=== PATIENT | female | born 1955 | race Caucasian/White ===

== ENCOUNTER → 2016-11-29 | Outpatient (REF) ==
[~2016-11-29] MED LIST: ACCUPRIL40 MG PO; ACTOS 45MG45 MG/TAB PO; AMBIEN 10MG10 MG PO; AVANDIA4 MG PO; EFFEXOR 75M75 MG/TAB PO; GLUCOPHAGE500 MG/TAB PO; LASIX 40MG TABL40 MG PO; METRONIDAZOLE500 MG PO; PEPCID40 MG PO; PRILOSEC 20MG20 MG PO; SYNTHROID0.05 MG/TA PO; ZOFRAN 4MG T4 MG/TAB PO
[2016-11-29 15:42] LABS: THYROID STIMULATING HORMONE 4.07 uIU/mL (0.465-4.680)
== END ==
LOC: ZLAB.WCH 14:50
PROVIDERS: Internal Medicine
DX: Z01.89 Encounter for other specified special examinations (principal)

== ENCOUNTER 2017-01-29 14:46 | Inpatient (IN) | payer BC ==
[~2017-01-29] VITALS: Ht 162.6 cm; Wt 109.2 kg
[2017-01-29 15:13] VITALS: BP 134/70; PULSE 91; TEMP 98.5
[2017-01-30 06:15] VITALS: BP 151/89; PULSE 117; PULSE 77; TEMP 96.5
[2017-01-30 18:14] VITALS: BP 102/51; PULSE 100; TEMP 98
[2017-01-31 06:26] VITALS: BP 105/55; PULSE 89; TEMP 98.7
[2017-01-31 07:05] LABS: BASO % 0.3 % (0.0-2.0); EOS # 0.2 (0.0-0.7); EOS % 1.7 % (0-4.0); GRAN % 58.9 % (42.2-75.2); LYMPH # 3.7 (1.2-3.4); LYMPH % 31.4 % (20.0-51.0); MEAN CELL VOLUME 80 fl (80.0-100.0); MEAN CORPUSCULAR HGB CONC 30 g/dl (33.0-37.0); MEAN PLATELET VOLUME 11.9 fl (7.4-10.4); MONO # 0.9 (0.1-0.6); MONO % 7.4 % (1.7-9.3); PLATELET COUNT 313 K/mm3 (130-400); RED BLOOD COUNT 3.32 M/mm3 (4.10-5.30); WHITE BLOOD COUNT 11.8 K/mm3 (4.8-10.8)
[2017-01-31] MEDS ORDERED: KLOR-CON M2020 MEQ PO (07:06)
[2017-01-31 07:08] LABS: CALCIUM 9.3 mg/dL (8.4-10.2); CREATININE, serum 1.43 mg/dL (0.52-1.25); HEMATOCRIT 26.7 % (37.0-47.0); MAGNESIUM 1.9 mg/dL (1.6-2.3); MEAN CORPUSCULAR HEMOGLOBIN 24 pg (27.0-31.0); POTASSIUM 4.5 mmol/L (3.4-5.0)
[2017-01-31] MEDS ORDERED: IRON TABLETS325 MG PO (07:09)
[2017-01-31] MEDS ORDERED: ULTRAM 50MG TAB50 MG PO (07:11)
[2017-01-31] MEDS ORDERED: XARELTO10 MG PO (07:13)
[2017-01-31 17:05] VITALS: BP 132/65; PULSE 89; TEMP 97.8
[2017-02-01 05:14] VITALS: BP 114/60; PULSE 83; TEMP 98
[2017-02-01 08:21] VITALS: BP 123/72
[2017-02-01 18:09] VITALS: BP 116/64; PULSE 88; TEMP 97.1
[2017-02-02 06:10] VITALS: BP 115/48; PULSE 85; TEMP 97.7
[2017-02-02 06:53] LABS: HEMATOCRIT 26.5 % (37.0-47.0)
[2017-02-02 07:04] LABS: CALCIUM 9.4 mg/dL (8.4-10.2); CREATININE, serum 1.55 mg/dL (0.52-1.25); MAGNESIUM 2.1 mg/dL (1.6-2.3); POTASSIUM 4.6 mmol/L (3.4-5.0)
[2017-02-02 17:15] VITALS: BP 116/59; PULSE 95; TEMP 97.2
[2017-02-03 06:20] VITALS: BP 118/51; PULSE 84; TEMP 98.2
[2017-02-03 14:51] VITALS: BP 127/64; PULSE 85; TEMP 97.1
[2017-02-04 05:39] VITALS: BP 125/46; PULSE 91; TEMP 98.2
[2017-02-04 07:28] LABS: CALCIUM 9.5 mg/dL (8.4-10.2); CREATININE, serum 1.71 mg/dL (0.52-1.25); POTASSIUM 4.8 mmol/L (3.4-5.0)
[2017-02-04] MEDS ORDERED: FERROUS SU325 MG/TAB PO (08:24)
[2017-02-04] MEDS ORDERED: ULTRAM 50MG TAB50 MG PO (08:28)
[2017-02-04] MEDS ORDERED: AMBIEN 10MG10 MG PO (08:28)
[2017-02-04 14:12] VITALS: BP 134/55; PULSE 71; TEMP 98.6
== END 2017-02-04 12:40 | disposition home health service (06) | DRG 561 ==
PROVIDERS: Internal Medicine
DX: S82.841D Displaced bimalleolar fracture of right lower leg, subsequent encounter for closed fracture with routine healing (principal); W18.30XD Fall on same level, unspecified, subsequent encounter; E11.9 Type 2 diabetes mellitus without complications; I10 Essential (primary) hypertension
CPT/HCPCS: 99222-AI; 99232-AI; 99239

== ENCOUNTER → 2017-02-21 | Outpatient (REF) ==
[~2017-02-21] MED LIST changes: +FERROUS SU325 MG/TAB PO; +IRON TABLETS325 MG PO; +KLOR-CON M2020 MEQ PO; +ULTRAM 50MG TAB50 MG PO; +XARELTO10 MG PO
[2017-02-21 19:23] LABS: THYROID STIMULATING HORMONE 2.3 uIU/mL (0.465-4.680)
== END ==
LOC: ZLAB.WCH 18:28
PROVIDERS: Internal Medicine
DX: Z01.89 Encounter for other specified special examinations (principal)

== ENCOUNTER → 2017-03-16 | Outpatient (CLI) | payer BC | LOC: COL.VAS 10:30 | DX: I37.1 Nonrheumatic pulmonary valve insufficiency (principal) ==

== ENCOUNTER 2017-10-25 17:21 | Inpatient (IN) | payer BC ==
[~2017-10-25] VITALS: Ht 162.6 cm; Wt 106.9 kg
[~2017-10-25 17:21] MED LIST changes: -EFFEXOR 75M75 MG/TAB PO; +EFFEXOR XR75 MG/CAP PO
[2017-10-25 19:33] VITALS: BP 137/77; PULSE 109; TEMP 98.9
[2017-10-25 20:48] VITALS: BP 137/77; PULSE 109; TEMP 98.9
[2017-10-25 23:39] LABS: PH 5 (5-8); SQUAMOUS EPITHELIAL 0-2 /hpf; URINE APPEARANCE Clear; URINE BACTERIA Rare /hpf; URINE BILIRUBIN Negative (NEGATIVE); URINE BLOOD Negative (NEGATIVE); URINE COLOR Yellow; URINE GLUCOSE Negative (NEGATIVE); URINE KETONE Negative (NEGATIVE); URINE LEUKOCYTE ESTERASE Trace (NEGATIVE); URINE NITRATE Negative (NEGATIVE); URINE PROTEIN(semi-quant) Negative (NEGATIVE); URINE RBC 0-2 /hpf; URINE UROBILINOGEN Negative (NEGATIVE)
[2017-10-25 23:46] LABS: COLLECTION METHOD CLEAN CATCH
[2017-10-26 00:41] VITALS: BP 142/76; PULSE 101; TEMP 98.6
[2017-10-26 04:53] VITALS: BP 142/64; PULSE 105; TEMP 98.7
[2017-10-26] MEDS ORDERED: LASIX 20MG TABL20 MG PO (06:44)
[2017-10-26] MEDS ORDERED: K-DUR20 MEQ PO (06:48)
[2017-10-26] MEDS ORDERED: AMARYL4 MG PO (06:49)
[2017-10-26 06:53] LABS: BASO # 0.1 (0.0-0.2); BASO % 0.3 % (0.0-2.0); EOS # 0.2 (0.0-0.7); EOS % 1.2 % (0-4.0); GRAN # 12.3 (1.4-6.5); GRAN % 75.8 % (42.2-75.2); HEMOGLOBIN 10.3 g/dl (12.5-16.0); LYMPH # 2.7 (1.2-3.4); LYMPH % 16.6 % (20.0-51.0); MEAN CELL VOLUME 85 fl (80.0-100.0); MEAN CORPUSCULAR HEMOGLOBIN 27 pg (27.0-31.0); MEAN CORPUSCULAR HGB CONC 32 g/dl (33.0-37.0); MEAN PLATELET VOLUME 13.1 fl (7.4-10.4); MONO # 0.9 (0.1-0.6); MONO % 5.5 % (1.7-9.3); PLATELET COUNT 196 K/mm3 (130-400); PROTHROMBIN TIME 11.7 SECONDS (9.7-12.8); RED BLOOD COUNT 3.81 M/mm3 (4.10-5.30); REDCELL DISTRIBUTION WIDTH-CV 15.9 % (11.5-14.5)
[2017-10-26 06:55] LABS: HEMATOCRIT 32.3 % (37.0-47.0)
[2017-10-26 07:02] LABS: ALBUMIN 3.4 gm/dL (3.5-5.0); BILIRUBIN,TOTAL 0.6 mg/dL (0.0-1.0); CALCIUM 8.8 mg/dL (8.4-10.2); CREATININE, serum 1.35 mg/dL (0.52-1.25); POTASSIUM 4.2 mmol/L (3.4-5.0); TOTAL PROTEIN 6.6 gm/dL (6.4-8.2)
[2017-10-26 08:33] VITALS: BP 134/61; PULSE 89; TEMP 98.3
[2017-10-26 12:39] VITALS: BP 146/58; PULSE 88; TEMP 98.3
[2017-10-26 15:31] VITALS: BP 147/63; PULSE 91; TEMP 98.8
[2017-10-26 20:00] VITALS: BP 140/76; PULSE 104; TEMP 98.2
[2017-10-27 04:02] VITALS: BP 140/76; PULSE 108; TEMP 99.1
[2017-10-27 07:36] VITALS: BP 129/73; PULSE 106; TEMP 98.9
[2017-10-27 07:39] LABS: BASO % 0.3 % (0.0-2.0); EOS # 0.1 (0.0-0.7); EOS % 0.8 % (0-4.0); GRAN # 10.9 (1.4-6.5); GRAN % 76.7 % (42.2-75.2); LYMPH # 2.1 (1.2-3.4); LYMPH % 14.9 % (20.0-51.0); MEAN CELL VOLUME 84 fl (80.0-100.0); MEAN CORPUSCULAR HGB CONC 32 g/dl (33.0-37.0); MEAN PLATELET VOLUME 12.5 fl (7.4-10.4); MONO % 6.8 % (1.7-9.3); PLATELET COUNT 201 K/mm3 (130-400); RED BLOOD COUNT 3.57 M/mm3 (4.10-5.30); REDCELL DISTRIBUTION WIDTH-CV 15.6 % (11.5-14.5)
[2017-10-27 07:42] LABS: HEMOGLOBIN 9.5 g/dl (12.5-16.0); MEAN CORPUSCULAR HEMOGLOBIN 27 pg (27.0-31.0)
[2017-10-27 07:58] LABS: CALCIUM 8.5 mg/dL (8.4-10.2); CREATININE, serum 1.21 mg/dL (0.52-1.25); POTASSIUM 4.1 mmol/L (3.4-5.0)
[2017-10-27 11:42] VITALS: BP 128/69; PULSE 91
[2017-10-27 16:37] VITALS: BP 132/73; PULSE 88; TEMP 98.3
[2017-10-27 21:30] VITALS: BP 127/76; PULSE 90; TEMP 98.7
[2017-10-28] VITALS (12 sets, daily range): BP systolic 86–148; BP diastolic 48–85; PULSE 72–102; TEMP 98–98.4
[2017-10-28 06:38] LABS: BASO % 0.3 % (0.0-2.0); EOS # 0.3 (0.0-0.7); GRAN # 8.8 (1.4-6.5); GRAN % 70.9 % (42.2-75.2); LYMPH # 2.5 (1.2-3.4); LYMPH % 19.9 % (20.0-51.0); MEAN CELL VOLUME 87 fl (80.0-100.0); MEAN CORPUSCULAR HGB CONC 31 g/dl (33.0-37.0); MEAN PLATELET VOLUME 12.5 fl (7.4-10.4); MONO # 0.8 (0.1-0.6); MONO % 6.3 % (1.7-9.3); PLATELET COUNT 195 K/mm3 (130-400); RED BLOOD COUNT 3.31 M/mm3 (4.10-5.30); REDCELL DISTRIBUTION WIDTH-CV 15.9 % (11.5-14.5)
[2017-10-28 06:47] LABS: HEMATOCRIT 28.8 % (37.0-47.0); MEAN CORPUSCULAR HEMOGLOBIN 27 pg (27.0-31.0)
[2017-10-28 06:50] LABS: CALCIUM 8.4 mg/dL (8.4-10.2); CREATININE, serum 1.18 mg/dL (0.52-1.25); POTASSIUM 4.2 mmol/L (3.4-5.0)
[2017-10-29] VITALS (7 sets, daily range): BP systolic 115–136; BP diastolic 62–78; PULSE 68–100; TEMP 98.1–98.7
[2017-10-29 08:20] LABS: CALCIUM 8.7 mg/dL (8.4-10.2); CREATININE, serum 1.25 mg/dL (0.52-1.25); POTASSIUM 4.3 mmol/L (3.4-5.0)
[2017-10-29 08:31] LABS: BASO # 0.1 (0.0-0.2); BASO % 0.4 % (0.0-2.0); EOS # 0.3 (0.0-0.7); EOS % 2.6 % (0-4.0); GRAN # 7.5 (1.4-6.5); LYMPH # 2.4 (1.2-3.4); LYMPH % 21.5 % (20.0-51.0); MEAN CELL VOLUME 85 fl (80.0-100.0); MEAN CORPUSCULAR HGB CONC 32 g/dl (33.0-37.0); MONO # 0.9 (0.1-0.6); MONO % 7.7 % (1.7-9.3); PLATELET COUNT 242 K/mm3 (130-400); RED BLOOD COUNT 3.38 M/mm3 (4.10-5.30); REDCELL DISTRIBUTION WIDTH-CV 15.9 % (11.5-14.5)
[2017-10-29 08:32] LABS: HEMATOCRIT 28.8 % (37.0-47.0); HEMOGLOBIN 9.1 g/dl (12.5-16.0); MEAN CORPUSCULAR HEMOGLOBIN 27 pg (27.0-31.0)
[2017-10-30 00:41] VITALS: BP 122/74; PULSE 76; TEMP 98.4
[2017-10-30 04:33] VITALS: BP 138/68; PULSE 82; TEMP 98.3
[2017-10-30 06:56] LABS: BASO # 0.1 (0.0-0.2); BASO % 0.5 % (0.0-2.0); EOS # 0.3 (0.0-0.7); EOS % 2.8 % (0-4.0); GRAN # 6.4 (1.4-6.5); LYMPH # 2.6 (1.2-3.4); LYMPH % 25.2 % (20.0-51.0); MEAN CELL VOLUME 85 fl (80.0-100.0); MEAN CORPUSCULAR HGB CONC 32 g/dl (33.0-37.0); MEAN PLATELET VOLUME 11.5 fl (7.4-10.4); MONO # 0.8 (0.1-0.6); MONO % 7.5 % (1.7-9.3); PLATELET COUNT 236 K/mm3 (130-400); RED BLOOD COUNT 3.23 M/mm3 (4.10-5.30); REDCELL DISTRIBUTION WIDTH-CV 15.7 % (11.5-14.5)
[2017-10-30 06:57] LABS: HEMATOCRIT 27.3 % (37.0-47.0); HEMOGLOBIN 8.7 g/dl (12.5-16.0); MEAN CORPUSCULAR HEMOGLOBIN 27 pg (27.0-31.0)
[2017-10-30 07:05] LABS: CALCIUM 8.4 mg/dL (8.4-10.2); CREATININE, serum 1.25 mg/dL (0.52-1.25); POTASSIUM 4.4 mmol/L (3.4-5.0)
[2017-10-30 07:14] VITALS: BP 134/72; PULSE 88; TEMP 97.7
[2017-10-30 11:28] VITALS: BP 138/78; PULSE 90; TEMP 97.7
[2017-10-30] MEDS ORDERED: CLEOCIN HC150 MG/CAP PO (15:35)
[2017-10-30] MEDS ORDERED: PROBIOTIC ACID1 EAC3 PO (15:36)
== END 2017-10-30 16:30 | disposition home or self-care (01) | DRG 854 ==
LOC: SURG 17:21
PROVIDERS: Hospitalist; Nurse Practitioner; Nurse Practitioner Family; Physician Assistant; Surgery
PROC: 0J990ZZ Drainage of Buttock Subcutaneous Tissue and Fascia, Open Approach (ICD-10-PCS; principal; 2017-10-28 08:00)
PROC: 0J9900Z Drainage of Buttock Subcutaneous Tissue and Fascia with Drainage Device, Open Approach (ICD-10-PCS; 2017-10-29)
DX: A41.9 Sepsis, unspecified organism (principal); L02.31 Cutaneous abscess of buttock; Z68.41 Body mass index [BMI] 40.0-44.9, adult; E87.1 Hypo-osmolality and hyponatremia; B95.62 Methicillin resistant Staphylococcus aureus infection as the cause of diseases classified elsewhere; I12.9 Hypertensive chronic kidney disease with stage 1 through stage 4 chronic kidney disease, or unspecified chronic kidney disease; E11.22 Type 2 diabetes mellitus with diabetic chronic kidney disease; N18.9 Chronic kidney disease, unspecified; B37.2 Candidiasis of skin and nail; E66.01 Morbid (severe) obesity due to excess calories
CPT/HCPCS: 99232-AI; 99233-AI; J1815; J2250; J2405; J2704; J3010; J3370; J3480; J7030; J7040; J7050

== ENCOUNTER → 2017-12-14 | Outpatient (REF) ==
[~2017-12-14] MED LIST changes: +AMARYL4 MG PO; +CLEOCIN HC150 MG/CAP PO; +K-DUR20 MEQ PO; +LASIX 20MG TABL20 MG PO; +PROBIOTIC ACID1 EAC3 PO
== END ==
LOC: ZLAB.WCH 18:15
DX: Z01.89 Encounter for other specified special examinations (principal)

== ENCOUNTER → 2018-03-20 | Outpatient (REF) ==
[2018-03-20 16:28] LABS: IRON,SERUM 49 ug/dL (35-150)
[2018-03-20 16:37] LABS: TOTAL IRON BINDING CAPACITY 274 ug/dL (265-497)
[2018-03-20 17:07] LABS: FERRITIN 68 ng/mL (11-264)
== END ==
LOC: ZLAB.WCH 16:09
PROVIDERS: Internal Medicine
DX: Z01.89 Encounter for other specified special examinations (principal)

== ENCOUNTER 2018-08-19 21:27 | Inpatient (IN) | payer BC ==
[~2018-08-19] VITALS: Ht 162.6 cm; Wt 96.6 kg
[2018-08-19 21:53] LABS: BASO # 0.1 (0.0-0.2); BASO % 0.3 % (0.0-2.0); EOS # 0.1 (0.0-0.7); EOS % 0.4 % (0-4.0); GRAN # 10.9 (1.4-6.5); GRAN % 68.9 % (42.2-75.2); HEMATOCRIT 39.1 % (37.0-47.0); HEMOGLOBIN 13.5 g/dl (12.5-16.0); LYMPH # 4.1 (1.2-3.4); LYMPH % 25.8 % (20.0-51.0); MEAN CELL VOLUME 79 fl (80.0-100.0); MEAN CORPUSCULAR HEMOGLOBIN 27 pg (27.0-31.0); MEAN CORPUSCULAR HGB CONC 35 g/dl (33.0-37.0); MEAN PLATELET VOLUME 12.3 fl (7.4-10.4); MONO # 0.6 (0.1-0.6); PLATELET COUNT 303 K/mm3 (130-400); RED BLOOD COUNT 4.93 M/mm3 (4.10-5.30); REDCELL DISTRIBUTION WIDTH-CV 14.8 % (11.5-14.5)
[2018-08-19 22:11] LABS: ALBUMIN 4.9 gm/dL (3.5-5.0); BILIRUBIN,TOTAL 0.8 mg/dL (0.0-1.0); C-REACTIVE PROTEIN 0.6 mg/dL (0.0-0.9); CALCIUM 10.3 mg/dL (8.4-10.2); CREATININE, serum 1.19 (0.52-1.25); TOTAL PROTEIN 8.8 gm/dL (6.4-8.2)
[2018-08-19] MEDS ORDERED: FORTAMET500 M1 PO (22:23)
[2018-08-19] MEDS ORDERED: PROAIR HFA0.09 MG/AC IH (22:25)
[2018-08-19] MEDS ORDERED: NATURAL MAGNES200 MG PO (22:57)
[2018-08-19] MEDS ORDERED: MULTI VITAMINS1 TAB PO (22:57)
[2018-08-19] MEDS ORDERED: PROBIOTIC ACID1 EAC3 PO (22:59)
[2018-08-19 23:35] LABS: COLLECTION METHOD CLEAN CATCH
[2018-08-19 23:49] LABS: MUCOUS Present /lpf; PH 6 (5-8); SQUAMOUS EPITHELIAL 0-2 /hpf; URINE APPEARANCE Hazy; URINE BACTERIA Rare /hpf; URINE BILIRUBIN Negative (NEGATIVE); URINE BLOOD Negative (NEGATIVE); URINE COLOR Straw; URINE GLUCOSE 1+ (NEGATIVE); URINE KETONE Negative (NEGATIVE); URINE LEUKOCYTE ESTERASE 2+ (NEGATIVE); URINE NITRATE Negative (NEGATIVE); URINE PROTEIN(semi-quant) Negative (NEGATIVE); URINE UROBILINOGEN Negative (NEGATIVE)
[2018-08-20] VITALS (618 sets, daily range): BP systolic 113–152; BP diastolic 61–93; PULSE 89–98; TEMP 97.6–98.8; O2SAT 93–100
[2018-08-20 00:38] LABS: INR 0.9 (0.8-3.0); PROTHROMBIN TIME 10.5 SECONDS (9.7-12.8)
[2018-08-20 00:40] LABS: PARTIAL THROMBOPLASTIN TIME 29.5 SECONDS (26.0-37.0)
--- NOTE | 2018-08-20 01:01 | NUR ---
RECEIVED REPORT FROM ER NURSE BRIJESH.
[2018-08-20 01:17] LABS: ANION GAP 14 mmol/L (7-16); BLOOD UREA NITROGEN 28 mg/dL (7-17); CARBON DIOXIDE 17 mmol/L (22-30); CHLORIDE 90 mmol/L (98-107); CREATININE, serum 1.02 (0.52-1.25); GLUCOSE 143 mg/dL (74-106); POTASSIUM 5.7 mmol/L (3.4-5.0); SODIUM 121 mmol/L (137-145)
[2018-08-20 01:18] LABS: SALICYLATE < 1.0 mg/dL
[2018-08-20] MEDS ORDERED: ACCUPRIL40MGTAB PO (01:33)
[2018-08-20] MEDS ORDERED: ACTOS 15MG TAB15 MG PO (01:35)
[2018-08-20] MEDS ORDERED: IRON TABLETS325 MG PO (01:38)
[2018-08-20] MEDS ORDERED: AMBIEN 10MG10 MG PO (01:40)
[2018-08-20 02:25] LABS: TROPONIN-I < 0.012 ng/mL (0.000-0.035)
[2018-08-20 03:55] LABS: BILIRUBIN,TOTAL 0.6 mg/dL (0.0-1.0); CREATININE, serum 1.02 (0.52-1.25); POTASSIUM 4.9 mmol/L (3.4-5.0); TOTAL PROTEIN 7.1 gm/dL (6.4-8.2)
[2018-08-20 05:37] LABS: BASO % 0.2 % (0.0-2.0); EOS # 0.1 (0.0-0.7); EOS % 0.5 % (0-4.0); GRAN # 6.7 (1.4-6.5); GRAN % 57.1 % (42.2-75.2); LYMPH # 4.1 (1.2-3.4); LYMPH % 34.7 % (20.0-51.0); MEAN CELL VOLUME 80 fl (80.0-100.0); MEAN CORPUSCULAR HGB CONC 34 g/dl (33.0-37.0); MEAN PLATELET VOLUME 12.3 fl (7.4-10.4); MONO # 0.8 (0.1-0.6); MONO % 7.1 % (1.7-9.3); PLATELET COUNT 222 K/mm3 (130-400); RED BLOOD COUNT 4.22 M/mm3 (4.10-5.30); REDCELL DISTRIBUTION WIDTH-CV 14.9 % (11.5-14.5)
[2018-08-20 05:38] LABS: HEMATOCRIT 33.8 % (37.0-47.0); HEMOGLOBIN 11.5 g/dl (12.5-16.0); MEAN CORPUSCULAR HEMOGLOBIN 27 pg (27.0-31.0)
--- NOTE | 2018-08-20 07:00 | NUR ---
Report received from PATTIE Vela. PT in bed resting, awake and alert, denies needs, IVF to RAC. Denies needs, will continue to monitor.
--- NOTE | 2018-08-20 08:34 | NUR ---
Assessment charted. Dr. Gonzalez in to see patient, orders received for surgery this am. Pts at bedside, consent signed for procedure. Pt resting in bed, up to bathroom, urine yellow and clear. Deneis pain. IVF to R A/C. Pt left at this time for OR with OR nurse Tasneem who will resume care.
--- NOTE | 2018-08-20 10:30 | NUR ---
Pt arrived back to room at this time with OR staff. Awake and alert, denies needs except feeling nauseated. VSS. Will continue to monitor.
--- NOTE | 2018-08-20 11:30 | NUR ---
Patient lives at home with her spouse (Chang Dickinson [phone]) in [place], [place] and plans to return home upon discharge. Patient is independent with daily living activities and receives support as needed from her family including her and daughter (Sissy Grimm). Patient has a walker to use for mobility as needed, her primary care physician is Dr. Lawrence Brantley, her pharmacy is [facility], and she does not have advance directives for healthcare completed at this time. Patient is employed in Sales Management with [employer] and no further needs at this time.
--- NOTE | 2018-08-20 12:37 | NUR ---
Pt doing well. Awake and resting. Up to bathroom, steady on feet. ORdered some food and wants to see how it is handled. Per Dr. Cerrato pt will transfer up to floor today, will continue to monitor.
--- NOTE | 2018-08-20 14:54 | NUR ---
Report called to PATTIE Robertson on surgical who will be resuming care. Will transport patient with all bleongings via w/c to surgical room 347. Surgical nurse can resume care.
--- NOTE | 2018-08-20 18:06 | NUR ---
THE PT WAS RECIEWED TO ROOM 347, MRSA ISOLATION IN USE. ACCOMPANIED BY YOLA BLANKENSHIP. WHO ASSISTED THE PT TO THE BR TO VOID- SBA. THEN TO THE BED, POSITIONED FOR COMFORT. IV PATENT. PLEASANT. WATCHES TV.
--- NOTE | 2018-08-20 18:39 | NUR ---
VISITS WITH FAMILY, STATED THAT SHE HAD A LATE LUNCH, SANDWICH AND CHIPS ORDERED FOR LATER. DIETARY WILL LEAVE IT IN THE FRIDGE.
--- NOTE | 2018-08-20 19:21 | NUR ---
Pt resting with HOB elevated. No distress noted. Pt denies pain. Pt does report some burning with urination which is new per pt. Urinary ouput is yellow with sediment. Straining urine. Assessment otherwise within normal limits. No needs noted. Will continue to monitor.
[2018-08-20 19:36] LABS: CALCIUM 9.1 mg/dL (8.4-10.2); CREATININE, serum 1.24 (0.52-1.25); POTASSIUM 5.3 mmol/L (3.4-5.0)
--- NOTE | 2018-08-21 00:09 | NUR ---
Pt reports pain is increasing and first dose of Ultram did not work. Second dose given. Will continue to monitor.
[2018-08-21 00:10] VITALS: BP 119/61; PULSE 89; TEMP 98.6
--- NOTE | 2018-08-21 01:50 | NUR ---
Pt reports pain is now 6/10, unrelieved by Ultram. Pt also now having hematuria.
--- NOTE | 2018-08-21 02:15 | NUR ---
Dr. Gonzalez contacted about patients increased pain levels. Orders received.
[2018-08-21 03:00] VITALS: BP 122/64; PULSE 88; TEMP 98.2
--- NOTE | 2018-08-21 04:00 | NUR ---
Pt reports that Percocet dulled her pain and she is comfortable again.
[2018-08-21 06:12] LABS: BASO % 0.2 % (0.0-2.0); EOS % 0.3 % (0-4.0); GRAN # 7.5 (1.4-6.5); GRAN % 66.2 % (42.2-75.2); LYMPH % 26.6 % (20.0-51.0); MEAN CELL VOLUME 83 fl (80.0-100.0); MEAN CORPUSCULAR HGB CONC 33 g/dl (33.0-37.0); MEAN PLATELET VOLUME 12.3 fl (7.4-10.4); MONO # 0.7 (0.1-0.6); MONO % 6.3 % (1.7-9.3); PLATELET COUNT 188 K/mm3 (130-400); RED BLOOD COUNT 3.54 M/mm3 (4.10-5.30); REDCELL DISTRIBUTION WIDTH-CV 15.1 % (11.5-14.5)
--- NOTE | 2018-08-21 06:15 | NUR ---
Pt resting in bed this AM. Pt denies pain this AM. No distress. Pt has not slept very much throughout the night as she has been up voiding multiple times. No needs noted. VSS.
[2018-08-21 06:22] LABS: HEMATOCRIT 29.5 % (37.0-47.0); HEMOGLOBIN 9.7 g/dl (12.5-16.0); MEAN CORPUSCULAR HEMOGLOBIN 27 pg (27.0-31.0)
[2018-08-21 06:25] LABS: CALCIUM 8.4 mg/dL (8.4-10.2); CREATININE, serum 1.1 (0.52-1.25); MAGNESIUM 2.1 mg/dL (1.6-2.3); POTASSIUM 4.5 mmol/L (3.4-5.0)
[2018-08-21 08:37] VITALS: BP 130/65; PULSE 75; TEMP 98.3
--- NOTE | 2018-08-21 11:00 | NUR ---
Patient has been doing well this am. Deies nausea. Minimal complaints of pain. Encouraged her to avoid drinking a lot of water, tea or coffee. Explained that since her sodium is low those can act as a diuretic and lower her sodium. Patient verbalized understanding. No other changes at this time. Call light within reach.
[2018-08-21 11:24] VITALS: BP 143/68; PULSE 86; TEMP 97.7
[2018-08-21 16:13] VITALS: BP 122/67; PULSE 84; TEMP 97.5
--- NOTE | 2018-08-21 19:00 | NUR ---
Ultram given at this time for pain. Patient has been unhooked from the IV for several hours. Denies nausea. Pain is well controlled with the ultram today. She has been getting around the room well. She just go her dinner tray. No other changes at this time. Call light within reach.
--- NOTE | 2018-08-21 19:27 | NUR ---
Pt resting in bed with HOB elevated after just returning from bathroom. No distress noted. Respirations even and unlabored. Lungs clear. Abdomen soft, nontender. BS+. Pt voiding clear, yellow urine with sediment at times. Pt c/o pain in lower abdomen on primarily LLQ that radiates to RLQ. Pt was previously medicated by dayshift for pain. Pt denies needs at this time. Will continue to monitor.
[2018-08-21 20:37] VITALS: BP 107/60; PULSE 88; TEMP 98.7
[2018-08-22 01:14] VITALS: BP 101/53; PULSE 78; TEMP 98.3
[2018-08-22 05:30] VITALS: BP 143/72; PULSE 91; TEMP 97.9
--- NOTE | 2018-08-22 06:17 | NUR ---
Lab at bedside. Pt c/o pain 5/10 in LLQ radiating across lower abdomen. PRN pain medications given with AM meds. Pt reports she has slept periodically throughout the shift. Urinary output has been clear, yellow.
[2018-08-22 06:51] LABS: CALCIUM 8.5 mg/dL (8.4-10.2); CREATININE, serum 1.11 (0.52-1.25); POTASSIUM 4.5 mmol/L (3.4-5.0)
[2018-08-22 07:15] LABS: BASO # 0.1 (0.0-0.2); BASO % 0.5 % (0.0-2.0); EOS # 0.2 (0.0-0.7); EOS % 1.2 % (0-4.0); GRAN # 6.5 (1.4-6.5); GRAN % 54.2 % (42.2-75.2); HEMOGLOBIN 10.6 g/dl (12.5-16.0); LYMPH # 4.5 (1.2-3.4); LYMPH % 37.2 % (20.0-51.0); MEAN CELL VOLUME 84 fl (80.0-100.0); MEAN CORPUSCULAR HEMOGLOBIN 27 pg (27.0-31.0); MEAN CORPUSCULAR HGB CONC 33 g/dl (33.0-37.0); MEAN PLATELET VOLUME 12.6 fl (7.4-10.4); MONO # 0.7 (0.1-0.6); MONO % 6.2 % (1.7-9.3); PLATELET COUNT 208 K/mm3 (130-400); RED BLOOD COUNT 3.87 M/mm3 (4.10-5.30); REDCELL DISTRIBUTION WIDTH-CV 15.6 % (11.5-14.5)
[2018-08-22 07:16] LABS: HEMATOCRIT 32.6 % (37.0-47.0)
--- NOTE | 2018-08-22 07:19 | NUR ---
report from Chanelle BLANKENSHIP.
[2018-08-22 07:29] VITALS: BP 127/63; PULSE 82; TEMP 97.5
[2018-08-22] MEDS ORDERED: CEFTIN500 MG PO (08:58)
[2018-08-22] MEDS ORDERED: ULTRAM 50MG TAB50 MG PO (08:59)
--- NOTE | 2018-08-22 09:10 | NUR ---
Patient is dc home today with no unmet discharge needs.
--- NOTE | 2018-08-22 10:52 | NUR ---
Initial visit; Patient thanked Category Manager for offering God's blessings and wishing her good health as she prepares to be discharged.
--- NOTE | 2018-08-22 10:56 | NUR ---
DISCHARGE INSTRUCTIONS REVIEWED WITH PATIENT AND FAMILY. QUESTIONS ANSWERED. PT LEFT AMBULATORY.
--- NOTE | 2018-08-22 11:00 | NUR ---
PT FEELING BETTER TO DAY AND WANTS TO GO HOME.
== END 2018-08-22 11:01 | disposition home or self-care (01) | DRG 854 ==
LOC: COL.ER 21:27 → ICU 08-20 00:30 → SURG 08-20 00:30
PROVIDERS: Internal Medicine; Nurse Practitioner; Nurse Practitioner Family; Urology; ADMIT Hospitalist
PROC: 0T778DZ Dilation of Left Ureter with Intraluminal Device, Via Natural or Artificial Opening Endoscopic (ICD-10-PCS; principal; 2018-08-20 09:00)
PROC: BT1FYZZ Fluoroscopy of Left Kidney, Ureter and Bladder using Other Contrast (ICD-10-PCS; 2018-08-20 09:00)
DX: A41.9 Sepsis, unspecified organism (principal); N13.2 Hydronephrosis with renal and ureteral calculous obstruction; E87.1 Hypo-osmolality and hyponatremia; E87.2 Acidosis; N39.0 Urinary tract infection, site not specified; R65.20 Severe sepsis without septic shock; E11.9 Type 2 diabetes mellitus without complications; K76.0 Fatty (change of) liver, not elsewhere classified; I10 Essential (primary) hypertension; E03.9 Hypothyroidism, unspecified; E87.6 Hypokalemia; E87.5 Hyperkalemia; E66.9 Obesity, unspecified; Z68.36 Body mass index [BMI] 36.0-36.9, adult; I44.7 Left bundle-branch block, unspecified; F32.9 Major depressive disorder, single episode, unspecified; K21.9 Gastro-esophageal reflux disease without esophagitis; B96.1 Klebsiella pneumoniae [K. pneumoniae] as the cause of diseases classified elsewhere; D64.9 Anemia, unspecified; R31.9 Hematuria, unspecified; Z90.710 Acquired absence of both cervix and uterus; Z88.0 Allergy status to penicillin; Z88.2 Allergy status to sulfonamides
CPT/HCPCS: 99223-AI; 99233-AI; 99239; A4216; C1769; C2617; J0690; J0696; J1100; J1170; J1815; J1885; J2405; J2550; J2704; J3010; J7030; Q9967

== ENCOUNTER 2019-01-04 18:24 | Inpatient (IN) | payer BC ==
[~2019-01-04] VITALS: Ht 162.6 cm; Wt 98.2 kg
[2019-01-04] VITALS (7 sets, daily range): BP systolic 132–165; BP diastolic 58–89; PULSE 84–92; TEMP 99.1
--- NOTE | 2019-01-04 18:00 | NUR ---
PT ADMITTED TO FLOOR AT THIS TIME.DR. MENDEZ NOTIFIED UPON ARRIVAL TO UNIT. COMPLETED MED REQ PRIOR TO PT GOING TO O.R.
[~2019-01-04 18:24] MED LIST changes: +ACCUPRIL40MGTAB PO; +ACTOS 15MG TAB15 MG PO; +CEFTIN500 MG PO; +FORTAMET500 M1 PO; +MULTI VITAMINS1 TAB PO; +NATURAL MAGNES200 MG PO; +PROAIR HFA0.09 MG/AC IH
[2019-01-04] MEDS ORDERED: PROBIOTIC FORMU1 CAP PO (18:49)
--- NOTE | 2019-01-04 20:12 | NUR ---
Received report for OR on patient at this time.
--- NOTE | 2019-01-04 20:22 | NUR ---
Arrived to medical floor at this time. Lungs clear. Heart sounds normal. Bowels active x4. Pulses strong throughout. No edema noted. Dressing to medial lower back CDI at this time. Patient reporting pain. Requested medication for pain and nausea. NO orders on chart at this time. Dr. Wilcox notified of patient arrival. Will be in to see patient soon.
--- NOTE | 2019-01-04 22:34 | NUR ---
Reports 8/10 back pain. Provided with PRN tramadol. Reporting mild nausea. Given zofran. Denies other needs at this time. Call light in reach.
--- NOTE | 2019-01-04 23:56 | NUR ---
Provided patient with PRN dilaudid for 7/10 back pain. Dressing CDI at this time.
[2019-01-05] VITALS (14 sets, daily range): BP systolic 118–145; BP diastolic 44–78; PULSE 65–100; TEMP 98.2–99.3
--- NOTE | 2019-01-05 06:32 | NUR ---
Patient had uneventful night. Required x1 dose of tramadol and x1 dose of dilaudid for pain control in back. Rating pain at 3/10 this AM. Denied needs. Call light in reach.
--- NOTE | 2019-01-05 07:28 | NUR ---
Report given Tiffanie RN
[2019-01-05 07:29] LABS: BASO % 0.3 % (0.0-2.0); EOS # 0.1 (0.0-0.7); GRAN # 9.4 (1.4-6.5); GRAN % 73.2 % (42.2-75.2); HEMATOCRIT 29.3 % (37.0-47.0); HEMOGLOBIN 9.2 g/dl (12.5-16.0); LYMPH # 2.4 (1.2-3.4); LYMPH % 18.5 % (20.0-51.0); MEAN CELL VOLUME 87 fl (80.0-100.0); MEAN CORPUSCULAR HEMOGLOBIN 27 pg (27.0-31.0); MEAN CORPUSCULAR HGB CONC 31 g/dl (33.0-37.0); MEAN PLATELET VOLUME 12.3 fl (7.4-10.4); MONO # 0.8 (0.1-0.6); MONO % 6.2 % (1.7-9.3); PLATELET COUNT 187 K/mm3 (130-400); RED BLOOD COUNT 3.38 M/mm3 (4.10-5.30); REDCELL DISTRIBUTION WIDTH-CV 14.5 % (11.5-14.5)
[2019-01-05 07:38] LABS: CALCIUM 8.3 mg/dL (8.4-10.2); CREATININE, serum 0.96 (0.52-1.25); POTASSIUM 3.4 mmol/L (3.4-5.0)
--- NOTE | 2019-01-05 08:20 | NUR ---
Vancomycin Initial Dosing Pharmacy Note Ordering provider: Milton Wilcox DO Indication/duration: Skin/Soft tissue infection, 7 days Relevant comorbidities: Diabetes, h/o MRSA LABS: SCr 0.96, CrCl~60, GFR 59 Recommendation: Will continue Vancomcyin 1 gm IV q12h. Pharmacy will check a Vancomycin trough on 01/07/19 and will closely monitor. Loading dose: 2 grams Maintenance dose: 1 gram every 12 hours Trough goal: 10-15 ug/mL
--- NOTE | 2019-01-05 09:11 | NUR ---
Pt currently sleeping in bed on her right side. No complaints at this time. Bed is in lowest postion and call light within reach.
--- NOTE | 2019-01-05 14:03 | NUR ---
Inshore Undersea Warfare Officer met with patient and patient's , Chang (ph#[phone]) to discuss discharge plan. Patient lives in [place] with her and grandchild. Patient sees Dr. Brantley for primary care and obtains her medications from [facility] with no difficulty. Patient reports independence with ADLS and does not use any DME. Patient does not have DPOA-HC, but is working on a will and trust through Alina Velazquez, an city attorney out of [place]. Patient plans to return home upon discharge. SW will follow as needed.
--- NOTE | 2019-01-05 14:08 | NUR ---
Primary nurse was assisted with [phone] patient care by [facility] ADN student Malorie Thompson and [facility] instructor Kerri Lombardi RN-BC.
--- NOTE | 2019-01-05 19:00 | NUR ---
PT WENT TO I&D TODAY, DRESSSING CDI, C/O PAIN AFTERWARDS, GAVE TRAMADOL. GAVE PO ZOFRAN FOR NAUSEA NO FURTHER NEEDS FOR PAIN MEDS OR ANTINAUSEA MEDS. ATE SUPPER THIS EVENING. IV SITE RESTARTED THIS EVENING DUE TO SITE NO LONGER ACCESSED. WAS ON 2L OF 02 AFTER SURGERY WAS ABLE TO KEEP SATS UP WAS ON RA REST OF DAY.
--- NOTE | 2019-01-06 01:08 | NUR ---
Patient resting in bed upon arrival to the room. Dressing to midback intact at beginning of shift. Patient called after ambulating to the bathroom and stated some of the packing at come out. Dressing reinforced at the bottom. Patient requests Tramadol PRN for pain. Administered and effective. IV antibiotics administered as ordered. Denies any further needs. Will continue to monitor.
[2019-01-06 03:38] VITALS: BP 114/58; PULSE 81
[2019-01-06 08:34] LABS: BASO % 0.5 % (0.0-2.0); EOS # 0.2 (0.0-0.7); EOS % 2.7 % (0-4.0); GRAN # 4.8 (1.4-6.5); GRAN % 63.2 % (42.2-75.2); LYMPH % 25.6 % (20.0-51.0); MEAN CELL VOLUME 87 fl (80.0-100.0); MEAN CORPUSCULAR HGB CONC 31 g/dl (33.0-37.0); MEAN PLATELET VOLUME 11.8 fl (7.4-10.4); MONO # 0.6 (0.1-0.6); MONO % 7.2 % (1.7-9.3); PLATELET COUNT 204 K/mm3 (130-400); RED BLOOD COUNT 3.22 M/mm3 (4.10-5.30); REDCELL DISTRIBUTION WIDTH-CV 14.3 % (11.5-14.5)
[2019-01-06 08:57] LABS: C-REACTIVE PROTEIN 7.5 mg/dL (0.0-0.9); CREATININE, serum 0.95 (0.52-1.25); HEMATOCRIT 27.9 % (37.0-47.0); HEMOGLOBIN 8.6 g/dl (12.5-16.0); MEAN CORPUSCULAR HEMOGLOBIN 27 pg (27.0-31.0); POTASSIUM 3.4 mmol/L (3.4-5.0)
[2019-01-06 09:27] VITALS: BP 133/63; PULSE 83; TEMP 98.4
--- NOTE | 2019-01-06 10:33 | NUR ---
Assessment completed, alert/oriented, vital signs stable/ afebrile, reports pain mild/ but increased pain with dressing changes, wound looks clean with serous drainage noted/ wet-dry sterile dressing change done/ and will be done TID as ordered by surgeon, wound Cx results pending, discharge planning for Tuesday so we can get home wound care set up and get Cx results to finalize antibiotic choice, heart RRR/distal pulses are palapble, lungs CTA/ no reps.difficulty, no other needs or concerns at this time
[2019-01-06 12:20] VITALS: BP 138/72; PULSE 83; TEMP 98.3
[2019-01-06 16:55] VITALS: BP 122/65; PULSE 87; TEMP 98.3
--- NOTE | 2019-01-06 19:00 | NUR ---
REPORT RECEIVED FROM PATTIE CHAPA; CARE OF PT ASSUMED AT THIS TIME. BEDSIDE ROUNDS COMPLETED, ALL NEEDS MET. CALL LIGHT WITHIN REACH.
[2019-01-06 20:37] VITALS: BP 144/73; PULSE 92; TEMP 97.7
--- NOTE | 2019-01-06 21:04 | NUR ---
PT ALERT, AWAKE, OX3; PLEASANT. PT REPORTS PAIN TO ABCESS ON SPINE, RATES AT 6/10 CURRENTLY, TRAMADOL GIVEN AT THIS TIME PER PT REQUEST. PT REPORTS HAVING A BOUT OF DIARRHEA THIS AFTERNOON, DENIES NAUESEA, OTHER ISSUES. DENIES URINARY ISSUES. CALL LIGHT WITHIN REACH.
[2019-01-07] VITALS (7 sets, daily range): BP systolic 121–144; BP diastolic 58–82; PULSE 67–92; TEMP 97.8–98.6
--- NOTE | 2019-01-07 03:10 | NUR ---
PT PROVIDED WITH PAIN MEDICATION AT THIS TIME PER REQUEST. PT STATES HER PAIN IS 8-9/10 TO HER BACK "WHERE MY WOUND IS!"
--- NOTE | 2019-01-07 06:47 | NUR ---
PT DIDN'T SLEEP MUCH DURING THE NIGHT, COMPLAINED OF PAIN TO HER WOUND SITE ON BACK OCC; PAIN MEDS GIVEN PRN WHEN REQUESTED. PT WAS OCC SLEEPING WHEN CHECKING ON HER. INDEPENDENTLY AMBULATES WITHIN ROOM. CALL LIGHT WITHIN REACH.
[2019-01-07 07:09] LABS: BASO # 0.1 (0.0-0.2); BASO % 0.6 % (0.0-2.0); EOS # 0.4 (0.0-0.7); EOS % 4.3 % (0-4.0); GRAN # 4.8 (1.4-6.5); GRAN % 57.2 % (42.2-75.2); HEMATOCRIT 29.6 % (37.0-47.0); HEMOGLOBIN 9.4 g/dl (12.5-16.0); LYMPH # 2.5 (1.2-3.4); LYMPH % 30.1 % (20.0-51.0); MEAN CELL VOLUME 86 fl (80.0-100.0); MEAN CORPUSCULAR HEMOGLOBIN 27 pg (27.0-31.0); MEAN CORPUSCULAR HGB CONC 32 g/dl (33.0-37.0); MEAN PLATELET VOLUME 11.2 fl (7.4-10.4); MONO # 0.6 (0.1-0.6); MONO % 6.8 % (1.7-9.3); PLATELET COUNT 249 K/mm3 (130-400); RED BLOOD COUNT 3.43 M/mm3 (4.10-5.30); REDCELL DISTRIBUTION WIDTH-CV 14.4 % (11.5-14.5)
--- NOTE | 2019-01-07 07:15 | NUR ---
REPORT GIVEN TO PATTIE CHAPA; BEDSIDE ROUNDS COMPLETED AT THIS TIME. CALL LIGHT WITHIN REACH.
[2019-01-07 07:16] LABS: CALCIUM 8.6 mg/dL (8.4-10.2); CREATININE, serum 0.97 (0.52-1.25); MAGNESIUM 1.8 mg/dL (1.6-2.3); POTASSIUM 3.7 mmol/L (3.4-5.0)
--- NOTE | 2019-01-07 10:00 | NUR ---
Assessment completed, alert/oriented, vital signs stable, report mild pain to back/ wound, ultram given prior to dressing change as pain is worse during this time, wound cx + MRSA/ hospitalist notified, dressing changed wet-to-dry, discharge planning for Tuesday01/08/19 with outpatient wound care/ dressing changes to be set-up, continued on IV vanc and will switch to PO doxycyline, patient denies other needs or concerns at this time
--- NOTE | 2019-01-07 20:00 | NUR ---
Assessment complete. Alert and oriented. C/O pain to back abscess, rate 8/10. PRN Ultram administered with relief. Pain medication administered 30 mins prior to dressing change, as requested by pt. Wet to dry dressing change complete. No drainage noted, wound bed red/pink with small spots of servin areas. Wound cleansed with sterile water soaked gauze, packed with wet kerlix, covered with 2pc 4x4 and abd pad, secured with hypafix. Pt tolerated well. INT to RFA infiltrated and DC'd, pt states pain when flush. PATTIE Gandhi started new INT to LFA, patent, CDI. Contact precautions in place. Needs met. pt able to make needs known. Call light within reach.
[2019-01-08 04:00] VITALS: BP 98/47; PULSE 74; TEMP 98.8
--- NOTE | 2019-01-08 06:30 | NUR ---
Pt slept well on this shift. Medications administered as ordered. Plan of care reviewed with pt throughout the night. Wet to dry dressing completed on this shift, tolerated well after being given PRN Ultram. Needs met. Call light within reach.
[2019-01-08 06:59] LABS: MEAN CELL VOLUME 86 fl (80.0-100.0); MEAN CORPUSCULAR HEMOGLOBIN 27 pg (27.0-31.0); MEAN CORPUSCULAR HGB CONC 31 g/dl (33.0-37.0); MEAN PLATELET VOLUME 11.2 fl (7.4-10.4); PLATELET COUNT 288 K/mm3 (130-400); RED BLOOD COUNT 3.71 M/mm3 (4.10-5.30); REDCELL DISTRIBUTION WIDTH-CV 14.2 % (11.5-14.5)
--- NOTE | 2019-01-08 07:03 | NUR ---
appears to be sleeping, in bed with lights off, eyes closed, resp quiet and easy, bedside shift report received from PATTIE Kay
[2019-01-08 07:18] LABS: CALCIUM 8.8 mg/dL (8.4-10.2); CREATININE, serum 0.96 (0.52-1.25); POTASSIUM 3.4 mmol/L (3.4-5.0)
--- NOTE | 2019-01-08 07:49 | NUR ---
appears to continue to sleep,
[2019-01-08 07:57] VITALS: BP 133/56; PULSE 73; TEMP 98
--- NOTE | 2019-01-08 08:29 | NUR ---
awakened for assessment, full assessment completed, see interventions for further info, dressing to back CD&I, in to visit, denies needs at this time
[2019-01-08 08:35] LABS: BAND 3 % (0-10); EOSINOPHIL 9 % (0-4); LYMPHOCYTE 31 % (20.0-51.0); NEUTROPHILS 49 % (42.0-75.2); PLATELET ESTIMATE NORMAL (NORMAL)
--- NOTE | 2019-01-08 09:55 | NUR ---
up and about in room independently, Dr Castaneda and care team in to see patient, medicated with ultram 50mg po in anticipation of dressing change
[2019-01-08] MEDS ORDERED: DOXYCYCLINE 10100 MG PO (10:00)
[2019-01-08] MEDS ORDERED: ULTRAM 50MG TAB50 MG PO (10:01)
[2019-01-08 11:04] VITALS: BP 117/67; PULSE 81; TEMP 98.9
--- NOTE | 2019-01-08 11:15 | NUR ---
dressing changed to back, removed kerlix packing and replaced with saline soaked kerlex, covered with 4x4s and then ABD dressing, tolerated well and states the ultram helps with the discomfort
--- NOTE | 2019-01-08 13:00 | NUR ---
is dressed and ready for discharge, INT discontinued, discharge instructions given to patient and her , verbalizes understanding
--- NOTE | 2019-01-08 13:15 | NUR ---
discharged per WC
== END 2019-01-08 13:15 | disposition home or self-care (01) | DRG 572 ==
LOC: MEDICAL 18:24
PROVIDERS: Family Medicine; Nurse Practitioner Family; Surgery
PROC: 0JB70ZZ Excision of Back Subcutaneous Tissue and Fascia, Open Approach (ICD-10-PCS; principal; 2019-01-04 19:30)
DX: L02.212 Cutaneous abscess of back [any part, except buttock and flank] (principal); L03.312 Cellulitis of back [any part except buttock and flank]; E11.65 Type 2 diabetes mellitus with hyperglycemia; E66.9 Obesity, unspecified; I10 Essential (primary) hypertension; D64.9 Anemia, unspecified; G47.00 Insomnia, unspecified; E78.5 Hyperlipidemia, unspecified; F32.9 Major depressive disorder, single episode, unspecified; E03.9 Hypothyroidism, unspecified; E87.5 Hyperkalemia; Z68.35 Body mass index [BMI] 35.0-35.9, adult; Z79.84 Long term (current) use of oral hypoglycemic drugs; Z88.0 Allergy status to penicillin; Z88.2 Allergy status to sulfonamides; Z88.8 Allergy status to other drugs, medicaments and biological substances
CPT/HCPCS: 99223-AI; 99232-AI; 99233-AI; 99239; A4216; J0692; J1170; J1335; J1815; J2405; J2550; J2704; J3010; J3370; J3480; J7030; J7040; J7050

== ENCOUNTER 2021-04-30 05:48 | Inpatient (IN) | payer BC ==
[~2021-04-30] VITALS: Ht 162.6 cm; Wt 104.0 kg
[~2021-04-30 05:48] MED LIST changes: +DOXYCYCLINE 10100 MG PO; +PROBIOTIC FORMU1 CAP PO
[2021-04-30 06:55] LABS: BASO # 0.1 K/mm3 (0.0-0.2); BASO % 0.4 % (0.0-2.0); EOS # 0.1 K/mm3 (0.0-0.7); EOS % 0.4 % (0.0-4.0); GRAN # 12.5 K/mm3 (1.4-6.5); GRAN % 81.6 % (42.2-75.2); HEMATOCRIT 37.3 % (37.0-47.0); HEMOGLOBIN 11.9 g/dl (12.5-16.0); LYMPH # 2.1 K/mm3 (1.2-3.4); LYMPH % 13.7 % (20.0-51.0); MEAN CELL VOLUME 78 fl (80.0-100.0); MEAN CORPUSCULAR HEMOGLOBIN 25 pg (27-31); MEAN CORPUSCULAR HGB CONC 32 g/dl (33.0-37.0); MONO # 0.5 K/mm3 (0.1-0.6); MONO % 3.5 % (1.7-9.3); PLATELET COUNT 174 K/mm3 (130-400); RED BLOOD COUNT 4.78 M/mm3 (4.10-5.30); REDCELL DISTRIBUTION WIDTH-CV 14.6 % (11.5-14.5)
[2021-04-30 07:08] LABS: ALBUMIN 3.3 gm/dL (3.4-4.8); BILIRUBIN,TOTAL 0.5 mg/dL (0.2-1.2); CALCIUM 8.5 mg/dL (8.4-10.2); CREATININE, serum 1.43 mg/dL (0.57-1.11); POTASSIUM 3.7 mmol/L (3.5-4.5); TOTAL PROTEIN 6.8 gm/dL (6.2-8.1)
[2021-04-30 08:17] LABS: CREATINE KINASE 20 U/L (29-168)
[2021-04-30 08:22] LABS: TROPONIN-I < 0.010 ng/mL (0.00-0.033)
[2021-04-30 08:48] LABS: COLLECTION METHOD CLEAN CATCH
[2021-04-30 08:55] LABS: PH 5 (5-8); SQUAMOUS EPITHELIAL 0-2 /hpf (0-10); URINE APPEARANCE Clear (CLEAR/HAZY); URINE BACTERIA None Seen /hpf (NONE SEEN); URINE BILIRUBIN Negative (NEGATIVE); URINE BLOOD Negative (NEGATIVE); URINE COLOR Straw (YELLOW); URINE GLUCOSE 3+ (NEGATIVE); URINE KETONE Negative (NEGATIVE); URINE LEUKOCYTE ESTERASE Negative (NEGATIVE); URINE NITRATE Negative (NEGATIVE); URINE PROTEIN(semi-quant) Negative (NEGATIVE); URINE RBC 0-2 /hpf (0-2); URINE UROBILINOGEN Negative (NEGATIVE)
[2021-04-30 12:39] VITALS: BP 137/64; PULSE 73; TEMP 97.5
[2021-04-30] MEDS ORDERED: LANTUS SOLOS100 U/ML SQ (14:40)
[2021-04-30] MEDS ORDERED: LASIX 20MG TABL20 MG PO (14:43)
[2021-04-30] MEDS ORDERED: LYRICA 75MG CAP75 MG PO (14:44)
[2021-04-30] MEDS ORDERED: PRIL40 PO (14:44)
[2021-04-30] MEDS ORDERED: CRESTOR20 MG PO (14:45)
--- NOTE | 2021-04-30 15:41 | NUR ---
Patient admitted to room 353 from ED.
[2021-04-30 16:00] VITALS: BP 153/72; PULSE 78; TEMP 98.2
--- NOTE | 2021-04-30 18:05 | NUR ---
Admission assessment completed. Medications, allergies, and pharmacy reviewed. PRN pain medication given for sharp 7/10 pain in left leg. VSS. Patient A&O. VSS. Fluids started as ordered. Patient denies any further pain, discomfort, SOA, or further needs at this time. Call light in reach. Fall percautions in place. at the bedside.
[2021-04-30 19:57] VITALS: BP 156/81; PULSE 76; TEMP 98.4
[2021-05-01 00:15] VITALS: BP 160/86; PULSE 88; TEMP 99
[2021-05-01 04:24] VITALS: BP 119/57; PULSE 77; TEMP 98.2
--- NOTE | 2021-05-01 06:00 | NUR ---
ASSESSMENT COMPLETE FOR THIS SHIFT. PT IN DISCOMFORT IN BED. PT COMPLAINED OF LEFT LEG AND ANKLE PAIN SHE RATED AN 8. PT GIVEN ULTRAM. PT STATED, PAIN NOT RELEIVED WITH ULTRAM. HOSPITALIST CALLED. MOTRIN AND MORPHINE ORDERED AND GIVEN TO PT. PT STATED THAT PAIN DOWN TO 4. PT DENIED PALPITATIONS, SOB, N,V,D OR DIZZINESS. PT EXPRESSED NO OTHER NEEDS. CALL LIGHT WITHIN.
[2021-05-01 06:05] LABS: BASO % 0.3 % (0.0-2.0); EOS # 0.1 K/mm3 (0.0-0.7); EOS % 0.9 % (0.0-4.0); GRAN # 5.2 K/mm3 (1.4-6.5); GRAN % 60.7 % (42.2-75.2); LYMPH # 2.7 K/mm3 (1.2-3.4); LYMPH % 30.9 % (20.0-51.0); MEAN CELL VOLUME 78 fl (80.0-100.0); MEAN CORPUSCULAR HEMOGLOBIN 25 pg (27-31); MEAN CORPUSCULAR HGB CONC 32 g/dl (33.0-37.0); MEAN PLATELET VOLUME 13.4 fl (7.4-10.4); MONO # 0.6 K/mm3 (0.1-0.6); PLATELET COUNT 162 K/mm3 (130-400); RED BLOOD COUNT 4.44 M/mm3 (4.10-5.30); REDCELL DISTRIBUTION WIDTH-CV 14.6 % (11.5-14.5)
[2021-05-01 06:07] LABS: HEMATOCRIT 34.8 % (37.0-47.0)
[2021-05-01 06:19] LABS: CALCIUM 8.6 mg/dL (8.4-10.2); CREATININE, serum 1.08 mg/dL (0.57-1.11); MAGNESIUM 1.6 mg/dL (1.6-2.6); PHOSPHOROUS 3.3 mg/dL (2.3-4.7); POTASSIUM 3.5 mmol/L (3.5-4.5)
[2021-05-01 08:35] VITALS: BP 137/79; PULSE 72; TEMP 98.5
[2021-05-01 11:46] VITALS: BP 152/71; PULSE 76; TEMP 97.6
--- NOTE | 2021-05-01 15:19 | NUR ---
Furniture Repairer met with patient and patient's , Chang (ph#[phone]) to discuss discharge planning. Patient lives in [place] with Chang and sees Dr. Brantley for primary care. Patient obtains medications from [facility] with no difficulties and has a cane/walker as needed. Patient reports independence with ADLS, however that she makes sure Chang is available while she is bathing in case she needs assistance or loses her balance. Patient requested to complete DPOA-HC. Patient filled out form and designated her , Chang. JANETTE and JANETTE Guevara provided witness signature. JANETTE provided original and copies to patient, then placed copy in chart. Patient would like to discharge home with outpatient PT at the [facility]. Discharge Plan: Home with outpatient PT
[2021-05-01 17:03] VITALS: BP 160/88; PULSE 73; TEMP 97.4
--- NOTE | 2021-05-01 18:45 | NUR ---
Patient has had an ok day. Scheduled medications given. Shift assessment performed. PRN pain medication given once this shift for LLE pain. Patient attempted to bear this shift, with no success. Patient is currenlty resting in bed. Respirations even and unlabored. Fluids running as ordered. Patient denies any further pain, discomfort, SOA, or further needs at this time. BP elevated, all other VSS. Patient A&O. Call light in reach.
[2021-05-01 20:31] VITALS: BP 154/81; PULSE 81; TEMP 98.5
[2021-05-02 00:27] VITALS: BP 161/80; PULSE 89; TEMP 98.3
--- NOTE | 2021-05-02 01:33 | NUR ---
PATIENT DOING WELL THIS SHIFT. PRN ULTRAM GIVEN Q 4 HOURS FOR PAIN TO LLE. ATTEMPTED TO BARE WEIGHT THIS SHIFT AND WAS HEAVY X2 ASSIST TO PIVOT TO COMMODE. PUREWICK WAS IN PLACE BUT HAS BEEN REMOVED. INSTRUCTED TO CALL FOR BED PIÑA OR BEDSIDE COMMODE WHEN NEEDED. HS MEDICATIONS GIVEN. BLOOD SUGARS ELEVATED AT 211. R AC IV PATENT WITH NS INFUSING AT 75 ML/HR.
[2021-05-02 04:25] VITALS: BP 164/85; PULSE 89; TEMP 98.6
[2021-05-02 06:21] LABS: BASO % 0.5 % (0.0-2.0); EOS # 0.2 K/mm3 (0.0-0.7); EOS % 1.9 % (0.0-4.0); GRAN # 4.6 K/mm3 (1.4-6.5); GRAN % 54.8 % (42.2-75.2); HEMOGLOBIN 10.8 g/dl (12.5-16.0); LYMPH % 35.5 % (20.0-51.0); MEAN CELL VOLUME 79 fl (80.0-100.0); MEAN CORPUSCULAR HEMOGLOBIN 25 pg (27-31); MEAN CORPUSCULAR HGB CONC 31 g/dl (33.0-37.0); MEAN PLATELET VOLUME 13.4 fl (7.4-10.4); MONO # 0.6 K/mm3 (0.1-0.6); MONO % 6.9 % (1.7-9.3); PLATELET COUNT 156 K/mm3 (130-400); RED BLOOD COUNT 4.36 M/mm3 (4.10-5.30); REDCELL DISTRIBUTION WIDTH-CV 14.9 % (11.5-14.5)
[2021-05-02 06:24] LABS: HEMATOCRIT 34.6 % (37.0-47.0)
[2021-05-02 06:34] LABS: CALCIUM 8.8 mg/dL (8.4-10.2); CREATININE, serum 0.83 mg/dL (0.57-1.11); MAGNESIUM 1.5 mg/dL (1.6-2.6); PHOSPHOROUS 2.9 mg/dL (2.3-4.7); POTASSIUM 3.6 mmol/L (3.5-4.5)
[2021-05-02 07:53] VITALS: BP 155/73; PULSE 92; TEMP 98.8
--- NOTE | 2021-05-02 08:00 | NUR ---
Patient called for assistance to use the bedpan. A&Ox4. VSS. IV CDI, fluids infusing. Reporting pain in left knee/leg. No pain medication given. Call light within reach
[2021-05-02 12:00] VITALS: BP 154/65; PULSE 91; TEMP 98.3
[2021-05-02 16:00] VITALS: BP 148/93; PULSE 87; TEMP 98.5
--- NOTE | 2021-05-02 17:57 | NUR ---
Patient had an uneventful day. Nursing staff positioning patient as needed for comfort. Left foot elevated on pillow. Pain medication given when requested. A&Ox4. VSS. IV CDI, fluids infusing. Call light within reach. Purewick in place and pericare provided
[2021-05-02 19:50] VITALS: BP 134/70; PULSE 77; TEMP 98.3
--- NOTE | 2021-05-02 20:30 | NUR ---
Patient is resting in bed, alert and oriented x 4, vss, receiving NS 75 ml/hr. Telemetry in place, NSR, States pain in her left leg. She will wait for the time of PRN. Assessment completed, medications provided. No other needs at this time. Call light within reach.
[2021-05-03 00:25] VITALS: BP 146/81; PULSE 88; TEMP 98.2
[2021-05-03 04:29] VITALS: BP 140/87; PULSE 87; TEMP 18
--- NOTE | 2021-05-03 06:24 | NUR ---
Patient has had a calm night. Continues getting NS at 75ml/hr. She got 1 dose of pain meds. Report will be given to day RN.
[2021-05-03 06:58] LABS: BASO % 0.4 % (0.0-2.0); EOS # 0.2 K/mm3 (0.0-0.7); EOS % 2.2 % (0.0-4.0); GRAN # 4.3 K/mm3 (1.4-6.5); GRAN % 59.8 % (42.2-75.2); HEMOGLOBIN 10.1 g/dl (12.5-16.0); LYMPH # 2.2 K/mm3 (1.2-3.4); LYMPH % 30.8 % (20.0-51.0); MEAN CELL VOLUME 82 fl (80.0-100.0); MEAN CORPUSCULAR HEMOGLOBIN 25 pg (27-31); MEAN CORPUSCULAR HGB CONC 31 g/dl (33.0-37.0); MEAN PLATELET VOLUME 12.9 fl (7.4-10.4); MONO # 0.5 K/mm3 (0.1-0.6); MONO % 6.5 % (1.7-9.3); PLATELET COUNT 151 K/mm3 (130-400); RED BLOOD COUNT 4.05 M/mm3 (4.10-5.30); REDCELL DISTRIBUTION WIDTH-CV 14.9 % (11.5-14.5)
[2021-05-03 07:07] LABS: ALBUMIN 2.7 gm/dL (3.4-4.8); CALCIUM 8.7 mg/dL (8.4-10.2); CREATININE, serum 0.82 mg/dL (0.57-1.11); MAGNESIUM 1.7 mg/dL (1.6-2.6); PHOSPHOROUS 3.2 mg/dL (2.3-4.7); POTASSIUM 3.8 mmol/L (3.5-4.5)
--- NOTE | 2021-05-03 08:00 | NUR ---
Patient sitting up in bed awake and watching TV. A&Ox4. VSS. IV CDI, fluids infusing. Left foot elevated on pillow. Contact precautions in place. Call light within reach
[2021-05-03 08:16] VITALS: BP 148/78; PULSE 80; TEMP 98.3
[2021-05-03 10:55] VITALS: BP 150/87; PULSE 96; TEMP 98.7
[2021-05-03 16:41] VITALS: BP 151/82; PULSE 80; TEMP 98.3
--- NOTE | 2021-05-03 17:19 | NUR ---
Patient worked with PT at the bedside and tolerated well. Left foot elevated on pillow, pain medication given when requested. Patient independent with repositioning in bed. A&Ox4. VSS. IV CDI. Contact precautions in place. Call light within reach
[2021-05-03 20:33] VITALS: BP 156/80; PULSE 84; TEMP 98.4
[2021-05-04 00:15] VITALS: BP 130/82; PULSE 87; TEMP 98.2
[2021-05-04 04:00] VITALS: BP 153/74; PULSE 82; TEMP 98.2
--- NOTE | 2021-05-04 06:15 | NUR ---
ASSESSMENT COMPLETE FOR THIS SHIFT. PT RESTING IN BED WITH HER BY HER SIDE. PT COMPLAINED OF PAIN A COUPLE OF TIMES TONIGHT. PT GIVEN ULTRAM FOR PAIN. PT FELT ULTRAM WAS EFFECTIVE FOR HER PAIN. PT DENIED PALPITATIONS, N,V,D, SOB OR DIZZINESS. PT EXPRESSED NO OTHER NEEDS AT THIS TIME. CALL LIGHT WITHIN REACH.
[2021-05-04 06:43] LABS: BASO # 0.1 K/mm3 (0.0-0.2); BASO % 0.6 % (0.0-2.0); EOS # 0.2 K/mm3 (0.0-0.7); EOS % 2.1 % (0.0-4.0); GRAN # 4.5 K/mm3 (1.4-6.5); GRAN % 58.2 % (42.2-75.2); HEMOGLOBIN 10.1 g/dl (12.5-16.0); LYMPH # 2.5 K/mm3 (1.2-3.4); LYMPH % 32.1 % (20.0-51.0); MEAN CELL VOLUME 80 fl (80.0-100.0); MEAN CORPUSCULAR HEMOGLOBIN 25 pg (27-31); MEAN CORPUSCULAR HGB CONC 31 g/dl (33.0-37.0); MEAN PLATELET VOLUME 13.2 fl (7.4-10.4); MONO # 0.5 K/mm3 (0.1-0.6); MONO % 6.6 % (1.7-9.3); PLATELET COUNT 156 K/mm3 (130-400); RED BLOOD COUNT 4.06 M/mm3 (4.10-5.30); REDCELL DISTRIBUTION WIDTH-CV 15.1 % (11.5-14.5)
[2021-05-04 06:49] LABS: HEMATOCRIT 32.4 % (37.0-47.0)
[2021-05-04 07:03] LABS: ALBUMIN 2.7 gm/dL (3.4-4.8); CALCIUM 8.7 mg/dL (8.4-10.2); CREATININE, serum 0.86 mg/dL (0.57-1.11); MAGNESIUM 1.6 mg/dL (1.6-2.6); PHOSPHOROUS 3.7 mg/dL (2.3-4.7); POTASSIUM 3.7 mmol/L (3.5-4.5)
[2021-05-04 07:57] VITALS: BP 158/79; PULSE 77; TEMP 98.2
--- NOTE | 2021-05-04 08:42 | NUR ---
Scheduled medications given. Shift assessment performed. PRN pain medication given for aching pain rated a 5/10 in the LLE. VSS. Patient A&O. Patient denies any further pain, discomfort, SOA, or further needs at this time. Call light in reach. Fall percautions in place.
[2021-05-04 11:16] VITALS: BP 144/90; PULSE 90; TEMP 98.3
[2021-05-04] MEDS ORDERED: BLUE-EMU LIDOC1 EACH TP (15:22)
[2021-05-04] MEDS ORDERED: ULTRAM 50MG TAB50 MG PO (15:24)
--- NOTE | 2021-05-04 15:50 | NUR ---
Manager Call attended clinical rounds with the team. [facility] screen placed and JANETTE contacted Eliza [facility] Director to give referral. Eliza submitted to patient's insurance and obtained authorization. Patient to discharge to [facility] today.
[2021-05-04 15:51] VITALS: BP 144/90; PULSE 90; TEMP 98.3
[2021-05-04 17:05] VITALS: BP 125/59; PULSE 80; TEMP 98.1
--- NOTE | 2021-05-04 17:47 | NUR ---
Patient has had an ok day. VSS. Patient A&O. PRN pain medication given this shift for aching pain to her left knee. Patient able to work with PT and OT this shift. Patient deemed fit for transfer to [facility]. Report given to PATTIE Hanson. Patient denies any further pain, discomfort, SOA, or needs at this time. Patient transported to room 339.
== END 2021-05-04 17:51 | DRG 638 ==
LOC: COL.ER 05:48 → MEDICAL 09:16
PROVIDERS: Emergency Medicine; Internal Medicine; Personal Emergency Response Attendant; ADMIT Internal Medicine
DX: E11.65 Type 2 diabetes mellitus with hyperglycemia (principal); N17.9 Acute kidney failure, unspecified; E86.0 Dehydration; F32.A Depression, unspecified; E66.9 Obesity, unspecified; I10 Essential (primary) hypertension; E78.00 Pure hypercholesterolemia, unspecified; I44.7 Left bundle-branch block, unspecified; E03.9 Hypothyroidism, unspecified; M17.0 Bilateral primary osteoarthritis of knee; E83.42 Hypomagnesemia; S86.912A Strain of unspecified muscle(s) and tendon(s) at lower leg level, left leg, initial encounter; W18.30XA Fall on same level, unspecified, initial encounter; Y93.9 Activity, unspecified; Y92.89 Other specified places as the place of occurrence of the external cause; Z88.0 Allergy status to penicillin; Z88.2 Allergy status to sulfonamides; Z79.4 Long term (current) use of insulin; Z68.35 Body mass index [BMI] 35.0-35.9, adult
CPT/HCPCS: 99232-AI; 99233-AI; 99239; G0378; J1170; J1644; J1815; J2270; J2405; J3475; J7030; J7040

== ENCOUNTER 2021-05-04 15:55 | Inpatient (IN) | payer BC ==
[~2021-05-04] VITALS: Ht 162.6 cm; Wt 104.0 kg
[~2021-05-04 15:55] MED LIST changes: +BLUE-EMU LIDOC1 EACH TP; +CRESTOR20 MG PO; +LANTUS SOLOS100 U/ML SQ; +LYRICA 75MG CAP75 MG PO; +PRIL40 PO
--- NOTE | 2021-05-05 03:26 | NUR ---
PATIENT IN ROOM 325, REPORT FROM SAMMI BLANKENSHIP. PATIENT ALERT AND ORIENTED. C/O L KNEE PAIN. PRN ULTRAM GIVEN Q 4 HOURS. IV TO R AC REMOVED, BANDAID APPLIED. TELE IN PLACE. PATIENT USING BEDPAN FREQUENTLY, PUREWICK IN PLACE NOW. HEPARIN FOR VTE. PATIENTS BLOOD SUGAR WAS 153 AND 4 UNITS OF NOVOLOG WAS ORDERED, HOWEVER PT ALSO HAS ORDER FOR [facility] WHICH WE USED INSTEAD DUE TO HER HAVING A SLIGHT REACTION TO THE NOVOLOG OVER THE PAST COUPLE OF DAYS. PATIENTS HELPED HER ADMINISTER THIS PEN WITH NURSE SUPERVISION.
[2021-05-05 05:14] VITALS: BP 140/71; PULSE 82; TEMP 98
--- NOTE | 2021-05-05 10:38 | NUR ---
JANETTE and SW student met with the patient and her , Chang, to complete intake; as the patient is new to [facility]. The patient lives in [place] with her . She reports independence with ADLs and has a cane and walker. The patient's PCP is Dr. Lawrence Brantley and she receives her medications from [facility]. She reports no difficulties obtaining her meds. The patient's DPOA-HC is not in EMR yet, but she states that she completed a DPOA-HC with the social media assistant when she was on the medical unit. She designated her . The patient states that she would prefer to do outpatient therapy at [facility] upon discharge. SW to continue to follow.
[2021-05-05 16:12] VITALS: BP 148/70; PULSE 81; TEMP 98.2
[2021-05-06 00:28] VITALS: BP 117/61; PULSE 77; TEMP 98.2
--- NOTE | 2021-05-06 00:40 | NUR ---
AERLT AND OX4. C/O LEFT KNEE PAIN, MEDS GIVEN. ORTHO CONSULTED FOR PAIN / FRACTURES- NWB TO LEFT LEG, BED PAIN AND PUREWICK USED. ICE TO KNEE - HEP FROM VTE. POC DISCUSSED. CALL LIGHT WI REACH.
--- NOTE | 2021-05-06 05:35 | NUR ---
RESTED THOUGH THE NIGHT WITHOUT INCIDENT. NEEDS ARE MET.
[2021-05-06 06:23] VITALS: BP 125/68; PULSE 78; TEMP 98.4
--- NOTE | 2021-05-06 07:24 | NUR ---
Shift report received from warehouse shift supervisor RN. Patient resting in bed. Call light is within her reach
--- NOTE | 2021-05-06 12:01 | NUR ---
Pt. resting in bed after completed OT for this morning. is at bedside. Pt. wearing ROM brace at 60 degrees as ordered. She denies further needs at this time. Call light is within her reach
--- NOTE | 2021-05-06 14:33 | NUR ---
JANETTE and JANETTE pace met with the patient to present and review the IPR Team Conference Note. The team has set a tentative discharge date for next Tuesday, 05/06, with home health PT/OT. The team is recommending a wheelchair and a wheelchair ramp. The patient states that Tuesday is her goal for discharge. She states that therapy did not go too well today and she would have to make a lot of progress to feel like she is ready to discharge by Tuesday. The patient would like to get her wheelchair and the wheelchair ramp from [employer]. She states that she got that equipment from [employer] in the past and they helped install the ramp. JANETTE to staff with PT on size for wheelchair and ramp. JANETTE also discussed setting up a patient/family meeting for tomorrow or Tuesday at 0930. The patient states that her is at an appointment now, but she plans on contacting him afterwards to find out which works better. She then plans on contacting JANETTE. JANETTE provided her with this JANETTE's phone number. JANETTE pace provided the patient with Medicare.gov's list of home health agencies that serve [place]. The patient chose [facility]. JANETTE contacted Jaquelin at [facility]. JANETTE pace faxed over the referral. Jaquelin plans to check the patient's insurance.
--- NOTE | 2021-05-06 15:07 | NUR ---
The patient contacted this SW and states that a family meeting tomorrow will work tomorrow at 0930. SW notified IPR Director.
[2021-05-06 17:08] VITALS: BP 154/73; PULSE 90; TEMP 98.1
--- NOTE | 2021-05-06 20:20 | NUR ---
ASSISTED PT TO BSC. VOIDED LG AMT. IROM BRACE TO LLE. BACK TO BED. ICE TO LT KNEE. ELEVATES ON PILLOWS. SEE MAR FOR TRAMADOL GIVEN FOR HEADACHE AND LLE PAIN. CALL LIGHT IN REACH. BED ALARM SET.
--- NOTE | 2021-05-07 00:34 | NUR ---
PT HAD DIFFICULTY GETTING TO USE BSC. VERY WEAK. PLACE PUREFriends AroundCK AT THIS TIME. SEE MAR FOR NORCO GIVEN. CALL LIGHT IN REACH. BED ALARM SET.
[2021-05-07 05:54] VITALS: BP 144/86; PULSE 87; TEMP 98
--- NOTE | 2021-05-07 06:12 | NUR ---
SEE MAR FOR NORCO GIVEN FOR LEVEL 7 LLE PAIN. PT HAS SLEPT SINCE JOSÉ MIGUEL IN PLACE.
--- NOTE | 2021-05-07 06:51 | NUR ---
Shift report received from weight shifter RN. Pt. is resting in bed. Call light is within her reach
--- NOTE | 2021-05-07 09:48 | NUR ---
JANETTE and JANETTE student, along with IPR Director, PT, and OT met with the patient for the patient/family meeting. The patient states that her was here for the meeting, but then he got sick and needed to leave. The patient states that her would probably not be reachable or want to talk by phone right now. IPR Director started by explaining the purpose of the meeting. PT/OT then discussed the patient's progress so far. IPR Director informed the patient how the team is looking at discharge next Tuesday, 05/12, with home health PT/OT and the need for a wheelchair and wheelchair ramp. The patient states that she is really not feeling well today. The team encouraged her to continue to work with therapy. The team answered all questions. JANETTE contacted and faxed the wheelchair and wheelchair ramp order to Cheyenne at [facility]. Cheyenne states that they do have the patient in their system and they had installed a 10 ft ramp at their home in the past. She states that they have both the wheelchair and ramp in stock. Jaquelin, at [facility], then contacted the patient. She states that they are able to accept the patient and start services next Tuesday. She states that they checked with the patient's insurance and she still has an [id number] cost of $4,427. She states that the patient will likely have met these costs, once her hospital bill goes through. Until then, the patient could have a co-pay of around $131.88 per visit. JANETTE to review this with the patient and her .
[2021-05-07 11:07] LABS: BASO % 0.4 % (0.0-2.0); EOS # 0.2 K/mm3 (0.0-0.7); EOS % 2.4 % (0.0-4.0); GRAN # 4.2 K/mm3 (1.4-6.5); GRAN % 53.2 % (42.2-75.2); LYMPH # 2.9 K/mm3 (1.2-3.4); LYMPH % 36.8 % (20.0-51.0); MEAN CELL VOLUME 80 fl (80.0-100.0); MEAN CORPUSCULAR HEMOGLOBIN 25 pg (27-31); MEAN CORPUSCULAR HGB CONC 31 g/dl (33.0-37.0); MEAN PLATELET VOLUME 11.9 fl (7.4-10.4); MONO # 0.5 K/mm3 (0.1-0.6); MONO % 6.9 % (1.7-9.3); PLATELET COUNT 218 K/mm3 (130-400); RED BLOOD COUNT 4.46 M/mm3 (4.10-5.30); REDCELL DISTRIBUTION WIDTH-CV 15.8 % (11.5-14.5)
[2021-05-07 11:13] LABS: HEMATOCRIT 35.5 % (37.0-47.0)
--- NOTE | 2021-05-07 11:18 | NUR ---
Pt. is resting in bed. She reported epigastric pain/chest pain to Dr. Capps this morning. Zofran and GI cocktail given as ordered. Pt. has not vomited. No diarrhea. Call light is within her reach
[2021-05-07 11:27] LABS: ALANINE AMINOTRANSFERASE 31 U/L (0-55); ALBUMIN 3.1 gm/dL (3.4-4.8); ALKALINE PHOSPHATASE 199 U/L (40-150); AST,SGOT 27 U/L (5-34); BILIRUBIN,TOTAL 0.7 mg/dL (0.2-1.2); BLOOD UREA NITROGEN 11 mg/dL (10-20); CALCIUM 8.8 mg/dL (8.4-10.2); CARBON DIOXIDE 21 mmol/L (23-31); CHLORIDE 108 mmol/L (98-107); CREATININE, serum 1.02 mg/dL (0.57-1.11); GLUCOSE 158 mg/dL (70-99); SODIUM 142 mmol/L (136-145); TOTAL PROTEIN 6.6 gm/dL (6.2-8.1)
[2021-05-07 11:29] LABS: TROPONIN-I < 0.010 ng/mL (0.00-0.033)
[2021-05-07 11:30] LABS: ANION GAP 13 mmol/L (7-16)
--- NOTE | 2021-05-07 13:12 | NUR ---
Pt. resting in bed. Arouses easily from sleep. She denies pain but reports not feeling well. No vomiting/diarrhea. Pt. declined her lunch; crackers and peanut butter provided at bedside. She denies further needs at this time. Call light is within her reach
--- NOTE | 2021-05-07 16:18 | NUR ---
Pt. resting in bed and watching television. IV site was initiated to left hand by charge nurse. Pt. remains on IVF as ordered. She reports her nausea is "almost gone". No vomiting or diarrhea. No c/o pain at this time. She denies further needs. Her call light is within her reach
[2021-05-07 17:37] VITALS: BP 154/73; PULSE 59; TEMP 97.8
--- NOTE | 2021-05-07 19:30 | NUR ---
2:1 ASSIST UP TO BSC TO VOID. WEARS PADS FOR INCONTINENCE. SEE MAR FOR TRAMADOL GIVEN FOR LLE PAIN. LEVEL 8/10.
--- NOTE | 2021-05-07 19:30 | NUR ---
IVF'S CONTINUE AT 60CC/HR. PT RELATES FEELING MUCH BETTER THIS EVENING. NO FURTHER NAUSEA.
[2021-05-08 05:54] VITALS: BP 116/80; PULSE 90; TEMP 97.2
[2021-05-08 07:38] VITALS: BP 138/72; PULSE 83; TEMP 97.7
--- NOTE | 2021-05-08 16:34 | NUR ---
PATIENT DOING WELL THIS SHIFT. NEEDS ONGOING ENCOURAGEMENT TO PARTICIPATE IN THERAPY AND ADLS. BRACE TO LEFT KNEE ONGOING WITH INTERMITTENT ICE THERAPY. PATIENT HAS TAKEN PRN PAIN MEDICATION AROUND THE CLOCK THIS SHIFT REQUESTED TO KEEP PAIN UNDER CONTROL. ABLE TO FEED SELF. USES WALKER TO AMBULATE. CONTINENT OF B&B. TAKES MEDS WHOLE WITH THIN LIQUIDS. A&O X4, PLEASANT.
[2021-05-08 17:30] VITALS: BP 151/70; PULSE 98; TEMP 97.7
--- NOTE | 2021-05-09 00:15 | NUR ---
PATIENT ALERT AND ORIENTED. C/O MODERATE PAIN TO L KNEE. PRN ULTRAM AND NORCO GIVEN PRN. ICE AND BRACE IN PLACE. TOLERATING STANDBY TO BEDSIDE COMMODE. HS MEDICATIONS GIVEN WITHOUT ISSUE. DENIES ANY FURTHER NEEDS. RESTING IN BED AT THIS TIME.
[2021-05-09 05:08] VITALS: BP 152/65; PULSE 69; TEMP 97.7
--- NOTE | 2021-05-09 05:38 | NUR ---
PATIENT CALLED OUT REQUESTING TO USE BEDSIDE COMMODE. STANDBY ASSIST WITH USE OF WALKER AND GAIT BELT. IV TO L HAND FELL OUT THROUGHOUT NIGHT ACCORDING TO PATIENT. SIGNIFICANT HEMATOMA AND BRUISING NOTED TO THAT HAND, NO ACTIVE BLEEDING AT THIS TIME. REQUESTS MERCER. WILL BRING WHEN DUE. AWAITING HANDOFF TO DAY SHIFT NURSE.
--- NOTE | 2021-05-09 18:48 | NUR ---
RECEIVED CHANGE OF SHIFT REPORT FROM DAY SHIFT RN.
[2021-05-09 19:29] VITALS: BP 152/65; PULSE 86; TEMP 98.6
[2021-05-10 06:02] VITALS: BP 179/72; PULSE 91; TEMP 97.3
--- NOTE | 2021-05-10 06:51 | NUR ---
CHANGE OF SHIFT REPORT GIVEN TO DAY SHIFT RNFAB.
[2021-05-10 17:37] VITALS: BP 158/75; PULSE 86; TEMP 97.9
--- NOTE | 2021-05-10 18:30 | NUR ---
RECEIVED CHANGE OF SHIFT REPORT FROM DAY SHIFT RN.
--- NOTE | 2021-05-10 20:00 | NUR ---
HINGED BRACE CONTINUES TO LLE/LKNEE PER D.O. PATIENT DENIES NUMBNESS/TINGLING TO EXTREMITIES AT THIS TIME. DENIES CHEST PAIN/SOA/NAUSEA/L KNEE DISCOMFORT. AT BEDSIDE.
[2021-05-11 05:53] VITALS: BP 151/86; PULSE 83; TEMP 97.4
--- NOTE | 2021-05-11 07:15 | NUR ---
CHANGE OF SHIFT REPORT GIVEN TO DAY SHIFT RNJIN.
--- NOTE | 2021-05-11 07:25 | NUR ---
Shift report received from shift supervisor RN. Pt. is asleep in bed. Call light is within her reach
--- NOTE | 2021-05-11 08:58 | NUR ---
"late entry, 05/08" SW attempted to contact the patient's to review discharge plan, to update on the equipment from [facility], and to discuss home health and the [id number] costs. SW left him a voicemail.
--- NOTE | 2021-05-11 09:24 | NUR ---
Pt. resting supine in bed with HOB elevated approx [address] is in room now for therapy. Pt. received PRN pain medications at her request prior to the start of her therapy for the day. Pain located in her left knee. She denies having nausea. IROM on to her left knee at 60 degree flexion. CMS WNL. She has no further needs at this time. Call light is within her reach
--- NOTE | 2021-05-11 15:28 | NUR ---
rack room worker met with patient and patient's to answer questions they had about the patient's medical equipment. Patient reports that they have arranged for [facility] to come out to their house tomorrow at 1100 to install the ramp.Patient's is planning on meeting them their to sign paperwork. Notified them that i have sent off the insurance information that the doctor needed to fill out to [facility] for her wheelchair. Contact made with Cheyenne at [facility] to notify her that i am faxing the patient's information back over to them and confirmed with her that they are planning on arriving to the patient's house at 1100 to install the ramp for her.
[2021-05-11 17:07] VITALS: BP 160/77; PULSE 57; TEMP 98.7
--- NOTE | 2021-05-12 00:15 | NUR ---
PATIENT ALERT AND ORIENTED. C/O SEVERE 9/10 PAIN AT START OF SHIFT. WAS TREATED WITH PRN NORCO THAT DECREASED PAIN TO 7/10. PRN ULTRAM WAS THEN GIVEN. AMBULATES WITH STANDBY ASSIST TO COMMODE. BRACE IS IN PLACE TO L KNEE. ICE IN PLACE. HS MEDICATIONS GIVEN. CURRENTLY ASLEEP IN BED, CALL LIGHT IN REACH.
[2021-05-12 05:54] VITALS: BP 151/75; PULSE 77; TEMP 98.7
--- NOTE | 2021-05-12 08:00 | NUR ---
Patient awake amd laying in bed. A&Ox4. VSS. Independent with positioning in bed. Reports pain in left leg, brace in place and leg elevated. Independent with feeds. No further needs expressed. Call light within reach
[2021-05-12] MEDS ORDERED: NORCO 325 MG-51 TAB PO (09:36)
[2021-05-12] MEDS ORDERED: SENOKOT S 50 MG1 TAB PO (09:36)
[2021-05-12] MEDS ORDERED: BLUE-EMU LIDOC1 EACH TP (09:37)
[2021-05-12] MEDS ORDERED: MIRALAX238G PO (09:37)
--- NOTE | 2021-05-12 11:54 | NUR ---
Discharge paperwork reviewed with the patient and at the bedside. Patient verbalized an understanding to follow doctors orders. No further needs expressed
--- NOTE | 2021-05-12 12:15 | NUR ---
Patient taken by wheelchair to car. Personal belongings and discharge paperwork with the patient.
--- NOTE | 2021-05-12 13:38 | NUR ---
Discharge QIM scores were reviewed by the team. Code of 4 chosen for toilet hygiene was determined by team discussion to be the most usual performance for this patient during the assessment period. Code of 5 chosen for toileting transfers was determined by team discussion to be the most usual performance for this patient during the assessment period. Code of 6 chosen for sit to lying was determined by team discussion to be the most usual performance before interventions for this patient during the assessment period. Code of 6 chosen for lying to sitting on side of bed was determined by team discussion to be the most usual performance for this patient during the assessment period. Code of 6 for sit to stand was determined by team discussion to be the most usual performance for this patient during the assessment period. Code of 6 for chair/bed to chair transfers was determined by team discussion to be the most usual performance for this patient during the assessment period.--Eliza Wang, PD
--- NOTE | 2021-05-12 14:05 | NUR ---
Patient's clinical updates and discharge orders faxed to [facility]
== END 2021-05-12 12:15 | disposition home health service (06) | DRG 560 ==
PROVIDERS: ADMIT Physical Medicine & Rehabilitation Sports Medicine
DX: S82.142D Displaced bicondylar fracture of left tibia, subsequent encounter for closed fracture with routine healing (principal); N17.9 Acute kidney failure, unspecified; S72.432D Displaced fracture of medial condyle of left femur, subsequent encounter for closed fracture with routine healing; R53.81 Other malaise; M17.0 Bilateral primary osteoarthritis of knee; R26.89 Other abnormalities of gait and mobility; E11.65 Type 2 diabetes mellitus with hyperglycemia; I10 Essential (primary) hypertension; E03.9 Hypothyroidism, unspecified; E86.0 Dehydration; E66.9 Obesity, unspecified; Z68.39 Body mass index [BMI] 39.0-39.9, adult; F32.A Depression, unspecified; E78.5 Hyperlipidemia, unspecified; R68.83 Chills (without fever); R11.0 Nausea; R07.89 Other chest pain; K59.00 Constipation, unspecified; W19.XXXD Unspecified fall, subsequent encounter; Y92.009 Unspecified place in unspecified non-institutional (private) residence as the place of occurrence of the external cause; Z73.6 Limitation of activities due to disability; Z79.891 Long term (current) use of opiate analgesic; Z79.4 Long term (current) use of insulin; Z79.899 Other long term (current) drug therapy; Z88.0 Allergy status to penicillin; Z88.1 Allergy status to other antibiotic agents; Z88.2 Allergy status to sulfonamides; Z88.8 Allergy status to other drugs, medicaments and biological substances; Z20.828 Contact with and (suspected) exposure to other viral communicable diseases
CPT/HCPCS: 99222; 99231-AI; 99232-AI; 99233-AI; J1644; J1815; J7030; L1832

== ENCOUNTER 2022-04-28 17:51 | Inpatient (IN) | payer BC ==
[~2022-04-28] VITALS: Ht 162.6 cm; Wt 98.6 kg
[~2022-04-28 17:51] MED LIST changes: +MACRODANTIN100 PO; +MIRALAX238G PO; +NORCO 325 MG-51 TAB PO; +SENOKOT S 50 MG1 TAB PO; +VALTREX1 GM PO
[2022-04-28 18:19] LABS: BASO # 0.1 K/mm3 (0.0-0.2); BASO % 0.5 % (0.0-2.0); EOS # 0.1 K/mm3 (0.0-0.7); EOS % 0.6 % (0.0-4.0); GRAN # 9.5 K/mm3 (1.4-6.5); GRAN % 77.9 % (42.2-75.2); HEMATOCRIT 38.9 % (37.0-47.0); HEMOGLOBIN 12.5 g/dl (12.5-16.0); LYMPH # 2.1 K/mm3 (1.2-3.4); LYMPH % 17.1 % (20.0-51.0); MEAN CELL VOLUME 76 fl (80.0-100.0); MEAN CORPUSCULAR HEMOGLOBIN 25 pg (27-31); MEAN CORPUSCULAR HGB CONC 32 g/dl (33.0-37.0); MEAN PLATELET VOLUME 12.2 fl (7.4-10.4); MONO # 0.3 K/mm3 (0.1-0.6); MONO % 2.8 % (1.7-9.3); PLATELET COUNT 199 K/mm3 (130-400); RED BLOOD COUNT 5.09 M/mm3 (4.10-5.30); REDCELL DISTRIBUTION WIDTH-CV 15.9 % (11.5-14.5)
[2022-04-28 18:31] LABS: PROTHROMBIN TIME 11.2 SECONDS (9.7-12.8)
[2022-04-28 18:43] LABS: ALANINE AMINOTRANSFERASE 24 U/L (0-55); ALBUMIN 3.6 gm/dL (3.4-4.8); ALKALINE PHOSPHATASE 122 U/L (40-150); ANION GAP 13 mmol/L (7-16); AST,SGOT 24 U/L (5-34); BILIRUBIN,TOTAL 0.3 mg/dL (0.2-1.2); BLOOD UREA NITROGEN 7 mg/dL (10-20); CALCIUM 8.9 mg/dL (8.4-10.2); CARBON DIOXIDE 17 mmol/L (23-31); CHLORIDE 104 mmol/L (98-107); CREATININE, serum 0.94 mg/dL (0.57-1.11); GLUCOSE 222 mg/dL (70-99); POTASSIUM 3.6 mmol/L (3.5-4.5); SODIUM 134 mmol/L (136-145)
[2022-04-28 18:49] LABS: TROPONIN-I < 0.010 ng/mL (0.00-0.033)
[2022-04-28 19:19] LABS: COLLECTION METHOD CATHETER
[2022-04-28 19:33] LABS: MUCOUS Present (NOT PRESENT); PH 5.5 (5-8); SQUAMOUS EPITHELIAL None Seen /hpf (0-10); URINE APPEARANCE Clear (CLEAR/HAZY); URINE BACTERIA Rare /hpf (NONE SEEN); URINE BLOOD Negative (NEGATIVE); URINE COLOR Yellow (YELLOW); URINE GLUCOSE Negative (NEGATIVE); URINE KETONE Negative (NEGATIVE); URINE NITRATE Negative (NEGATIVE); URINE PROTEIN(semi-quant) Negative (NEGATIVE); URINE RBC 0-2 /hpf (0-2); URINE UROBILINOGEN 0.2 (NEGATIVE)
--- NOTE | 2022-04-28 23:05 | NUR ---
PT ARRIVED FROM ER VIA WHEELCHAIR. ASSISTED INTO BED, ASSESSMENT COMPLETE. VSS. R WRIST WITH GERALD B[facility]AGE [facility]. SENSATION INTACT, CAP REFIL <3 SECONDS. SOME SWELLING NOTED TO RUE AND HAND. PT DOES REPORT PAIN 08/23, CALL TO SARBJIT SAWYER APRN OF PT'S ARRIVAL TO ROOM AND NEED FOR PAIN MEDICATION ORDERS. ELEVATED RUE ON PILLOW. DRUG ABUSE RESISTANCE EDUCATION OFFICER IN PLACE, PT CURRENTLY IN SR, WITH NO C/O CHEST PAIN OR PRESSURE. PT DOES HAVE SOME ANXIETY, ONLY CONCERN IS GETTING AMBIEN TONIGHT SO SHE CAN GET SOME SLEEP. CALL LIGHT IN HAND, WILL CONTINUE TO MONITOR.
[2022-04-28 23:07] VITALS: BP 122/91; PULSE 82; TEMP 97.9
[2022-04-28 23:36] VITALS: BP 116/75; PULSE 102; TEMP 99.8
[2022-04-29] MEDS ORDERED: LANTUS SOLOS100 U/ML SQ (00:29)
[2022-04-29] MEDS ORDERED: SEMGLEE (Y100 UNIT/2 SQ ×2 (00:42→00:43)
[2022-04-29] MEDS ORDERED: RT ADVAIR 228 DISKUS IH (00:44)
--- NOTE | 2022-04-29 01:30 | NUR ---
PT REFUSING LAB DRAW AT THIS TIME. STATES WILL BE OK WITH MORNING LABS. WANTS TO BE ABLE TO SLEEP AND STATES THAT HAS BEEN STUCK THREE TIMES ALREADY.
[2022-04-29 05:26] VITALS: BP 132/105; PULSE 85; TEMP 98.1
[2022-04-29 06:32] LABS: BASO % 0.4 % (0.0-2.0); EOS # 0.1 K/mm3 (0.0-0.7); EOS % 1.3 % (0.0-4.0); GRAN % 57.5 % (42.2-75.2); HEMOGLOBIN 10.6 g/dl (12.5-16.0); LYMPH # 3.6 K/mm3 (1.2-3.4); LYMPH % 34.5 % (20.0-51.0); MEAN CELL VOLUME 77 fl (80.0-100.0); MEAN CORPUSCULAR HEMOGLOBIN 25 pg (27-31); MEAN CORPUSCULAR HGB CONC 32 g/dl (33.0-37.0); MEAN PLATELET VOLUME 12.2 fl (7.4-10.4); MONO # 0.6 K/mm3 (0.1-0.6); MONO % 5.9 % (1.7-9.3); PLATELET COUNT 197 K/mm3 (130-400); RED BLOOD COUNT 4.33 M/mm3 (4.10-5.30); REDCELL DISTRIBUTION WIDTH-CV 16.1 % (11.5-14.5)
[2022-04-29 06:34] LABS: HEMATOCRIT 33.4 % (37.0-47.0)
[2022-04-29 06:53] LABS: ANION GAP 11 mmol/L (7-16); BLOOD UREA NITROGEN 9 mg/dL (10-20); CALCIUM 8.5 mg/dL (8.4-10.2); CARBON DIOXIDE 20 mmol/L (23-31); CHLORIDE 107 mmol/L (98-107); GLUCOSE 117 mg/dL (70-99); MAGNESIUM 1.3 mg/dL (1.6-2.6); POTASSIUM 3.4 mmol/L (3.5-4.5); SODIUM 138 mmol/L (136-145)
[2022-04-29 07:14] LABS: TSH w REFLEX 1.132 uIU/mL (0.350-4.940)
[2022-04-29 08:00] VITALS: BP 106/59; PULSE 74; TEMP 98
[2022-04-29 08:46] LABS: CHOLESTEROL RISK RATIO 6.2
[2022-04-29 11:16] VITALS: BP 110/62; PULSE 82; TEMP 97.9
--- NOTE | 2022-04-29 11:21 | NUR ---
JANETTE met with the patient and her , Chang (ph#[phone]), to discuss discharge plan. The patient lives in [place] with her . She reports independence with ADLs and has a cane and walker. She provides that she does need some help with bathing and that her helps her with this. The patient's PCP is Dr. Lawrence Brantley and she receives her medications from [facility]. The patient's DPOA-HC is in EMR and it designates her . The patient plans to return home with her upon discharge. No additional needs at this time. *Discharge plan: home with *
[2022-04-29 15:59] VITALS: BP 119/65; PULSE 84; TEMP 98
--- NOTE | 2022-04-29 17:50 | NUR ---
22g started to RFA x2 attempts. IV site to LFA red and leaking- IV site d/c'd by Tuan Burgess LPN.
--- NOTE | 2022-04-29 18:36 | NUR ---
Pt rec'd Morphine IV at 1032 and 1701, [place] po at 0907 and 1702 for c/o of right wrist pain. Nader wrap to right forearm and wrist still in place. Right hand/wrist/forearm with non pitting edema- elevated and iced throughout the day. Replaced K+ and Mg+. IVF d/c'd per MD order. at bedside throughout day. Pt very pleasent and cooperative.
[2022-04-29 20:09] VITALS: BP 128/64; PULSE 67; TEMP 97.9
--- NOTE | 2022-04-29 20:30 | NUR ---
Initial shift assessment done- right hand up on pillow- edematous- able to move fingers,warm, ice bag applied to RFA/wrist,, tele on- SR,, Will give Morphine and [place] for pain as ordered.
[2022-04-29 23:25] VITALS: BP 93/67; PULSE 85; TEMP 98.5
--- NOTE | 2022-04-29 23:33 | NUR ---
Report received from at 2230. RUE elevated on pillows, ice pack given. Acewrap dressing is CDI. Fingers edematous, CMS WNL. Lasix given as ordered. Alert, oriented x4, denies further needs. Call light within reach.
--- NOTE | 2022-04-30 02:15 | NUR ---
Report received from Britany Alfaro. Pt resting with eyes closed. Call light within reach.
[2022-04-30 05:50] VITALS: BP 126/62; PULSE 74; TEMP 98.6
[2022-04-30 06:52] LABS: BASO % 0.4 % (0.0-2.0); EOS # 0.2 K/mm3 (0.0-0.7); EOS % 1.6 % (0.0-4.0); GRAN # 5.3 K/mm3 (1.4-6.5); GRAN % 57.5 % (42.2-75.2); LYMPH # 3.1 K/mm3 (1.2-3.4); LYMPH % 33.7 % (20.0-51.0); MEAN CELL VOLUME 76 fl (80.0-100.0); MEAN CORPUSCULAR HGB CONC 33 g/dl (33.0-37.0); MEAN PLATELET VOLUME 12.4 fl (7.4-10.4); MONO # 0.6 K/mm3 (0.1-0.6); MONO % 6.7 % (1.7-9.3); PLATELET COUNT 174 K/mm3 (130-400); RED BLOOD COUNT 3.89 M/mm3 (4.10-5.30); REDCELL DISTRIBUTION WIDTH-CV 16.2 % (11.5-14.5)
[2022-04-30 06:53] LABS: HEMATOCRIT 29.7 % (37.0-47.0); HEMOGLOBIN 9.9 g/dl (12.5-16.0); MEAN CORPUSCULAR HEMOGLOBIN 25 pg (27-31)
[2022-04-30 07:09] LABS: CALCIUM 8.3 mg/dL (8.4-10.2); CREATININE, serum 1.05 mg/dL (0.57-1.11)
[2022-04-30 07:46] VITALS: BP 106/52; PULSE 72; TEMP 99.6
--- NOTE | 2022-04-30 09:23 | NUR ---
Assessment complete. A/O x4. Reports right wrist pain 04/23- requesting pain medication. Ambulates to bathroom using walker- standby assist. at bedside.
--- NOTE | 2022-04-30 09:36 | NUR ---
[place] administered po for c/o pain.
--- NOTE | 2022-04-30 10:52 | NUR ---
Pt resting in bed, with eyes closed- respirations even and unlabored. Requested staff allow her to nap today since she didn't sleep well last night. at bedside.
[2022-04-30 11:38] VITALS: BP 107/48; PULSE 71; TEMP 98.1
[2022-04-30] MEDS ORDERED: LIPITOR 40MG TA40 MG PO (11:53)
[2022-04-30] MEDS ORDERED: TOPROL XL 25MG25 MG PO (11:53)
[2022-04-30] MEDS ORDERED: ASPIRIN 81M81 MG/TA2 PO (11:53)
[2022-04-30] MEDS ORDERED: NORCO 325 MG-51 TAB PO (12:06)
--- NOTE | 2022-04-30 12:08 | NUR ---
Discharge orders rec'd. Tele d/c'd. INT d/c'd with cath tip intact.
--- NOTE | 2022-04-30 14:10 | NUR ---
DISCHARGE INSTRUCTIONS REVIEWED WITH PATIENT AND SPOUSE/ BOTH VERBILIZED UNDERSTANDING. PATIENT ESCORTED TO PRIVATE VEHICLE AND DISCHARGED HOME WITH SPOUSE.
== END 2022-04-30 14:10 | disposition home or self-care (01) | DRG 305 ==
LOC: COL.ER 17:51 → MEDICAL 18:56
PROVIDERS: Nurse Practitioner Family; Nurse Practitioner Primary Care; Student in an Organized Health Care Education/Training Program; ADMIT Internal Medicine
DX: I16.0 Hypertensive urgency (principal); E87.1 Hypo-osmolality and hyponatremia; E87.20 Acidosis, unspecified; R65.10 Systemic inflammatory response syndrome (SIRS) of non-infectious origin without acute organ dysfunction; I48.91 Unspecified atrial fibrillation; I10 Essential (primary) hypertension; M79.7 Fibromyalgia; J45.909 Unspecified asthma, uncomplicated; F41.9 Anxiety disorder, unspecified; K21.9 Gastro-esophageal reflux disease without esophagitis; E11.40 Type 2 diabetes mellitus with diabetic neuropathy, unspecified; F32.A Depression, unspecified; I49.3 Ventricular premature depolarization; E87.6 Hypokalemia; E11.65 Type 2 diabetes mellitus with hyperglycemia; I45.81 Long QT syndrome; E83.42 Hypomagnesemia; I44.7 Left bundle-branch block, unspecified; Z90.710 Acquired absence of both cervix and uterus; Z90.49 Acquired absence of other specified parts of digestive tract; Z88.6 Allergy status to analgesic agent; Z88.1 Allergy status to other antibiotic agents; Z88.5 Allergy status to narcotic agent; Z88.0 Allergy status to penicillin; Z88.2 Allergy status to sulfonamides; Z88.8 Allergy status to other drugs, medicaments and biological substances; Z79.4 Long term (current) use of insulin
CPT/HCPCS: OP; G0378; J1650; J1815; J2060; J2270; J3475; J7030; Q9967

== ENCOUNTER 2022-06-01 17:40 | Emergency (ER) | payer BC ==
[~2022-06-01] VITALS: Ht 162.6 cm; Wt 100.0 kg
[~2022-06-01 17:40] MED LIST changes: +ASPIRIN 81M81 MG/TA2 PO; +LIPITOR 40MG TA40 MG PO; +RT ADVAIR 228 DISKUS IH; +SEMGLEE (Y100 UNIT/2 SQ; +TOPROL XL 25MG25 MG PO
[2022-06-01 17:45] VITALS: TEMP 97.7
[2022-06-01] MEDS ORDERED: DULCOLAX STOOL100 MG PO (18:44)
[2022-06-01 18:50] VITALS: BP 149/81; PULSE 88
[2022-06-06] MEDS ORDERED: DOXYCYCLINE 10100 MG PO (20:03)
== END 2022-06-01 18:50 | disposition home or self-care (01) ==
LOC: COL.ER 17:40
DX: K56.41 Fecal impaction (principal); R11.0 Nausea
CPT/HCPCS: J2405

== ENCOUNTER 2023-12-12 12:42 | Inpatient (IN) | payer BC, MEDICARE ==
[2023-12-12] VITALS (278 sets, daily range): BP systolic 138–172; BP diastolic 78–88; PULSE 75–76; TEMP 97.9–98.4; O2SAT 94–100
[~2023-12-12] VITALS: Ht 162.6 cm; Wt 101.5 kg
[~2023-12-12 12:42] MED LIST changes: +ASPIRIN E.C. 8181 MG PO; +CORDARONE200 MG/TAB PO; +D3-5050000 IU PO; +DULCOLAX STOOL100 MG PO; +ELIQUIS 5MG PO; +MELATONIN ER10 MG PO; +PACERONE200 MG PO; +PLAVIX 75MG TAB75 MG PO; +PRINIVIL20 MG PO; +REMERON 15M15 MG/TA1 PO; +ZESTRIL 20MG TA20 MG PO; +ZESTRIL40 MG PO
[2023-12-12 13:45] LABS: BASO # 0.1 K/mm3 (0.0-0.2); BASO % 0.5 % (0.0-2.0); EOS # 0.1 K/mm3 (0.0-0.7); EOS % 0.6 % (0.0-4.0); GRAN # 7.3 K/mm3 (1.4-6.5); HEMATOCRIT 37.5 % (37.0-47.0); HEMOGLOBIN 12.7 g/dl (12.5-16.0); LYMPH # 1.9 K/mm3 (1.2-3.4); LYMPH % 19.4 % (20.0-51.0); MEAN CELL VOLUME 77 fl (80.0-100.0); MEAN CORPUSCULAR HEMOGLOBIN 26 pg (27-31); MEAN CORPUSCULAR HGB CONC 34 g/dl (33.0-37.0); MEAN PLATELET VOLUME 12.5 fl (7.4-10.4); MONO # 0.5 K/mm3 (0.1-0.6); MONO % 4.7 % (1.7-9.3); PLATELET COUNT 189 K/mm3 (130-400); RED BLOOD COUNT 4.89 M/mm3 (4.10-5.30); REDCELL DISTRIBUTION WIDTH-CV 16.1 % (11.5-14.5)
[2023-12-12 14:03] LABS: ALBUMIN 3.7 g/dL (3.4-4.8); BILIRUBIN,TOTAL 0.5 mg/dL (0.2-1.2); CALCIUM 8.8 mg/dL (8.4-10.2); CREATININE, serum 1.03 mg/dL (0.57-1.11); POTASSIUM 4.6 mEq/L (3.5-4.5); TOTAL PROTEIN 6.9 g/dl (6.2-8.1)
[2023-12-12] MEDS ORDERED: NS 1,000 ML IV ONE (14:45)
[2023-12-12 15:26] LABS: COLLECTION METHOD CLEAN CATCH
[2023-12-12] MEDS ORDERED: Ondansetron 4 MG/2 ML VIAL IV PRN (15:30)
[2023-12-12] MEDS ORDERED: Acetaminophen 500 MG TAB PO PRN (15:30)
[2023-12-12 15:58] LABS: PH 5.5 (5.0-8.5); URINE BLOOD NEGATIVE (NEGATIVE); URINE COLOR YELLOW (YELLOW); URINE GLUCOSE NEGATIVE (NEGATIVE); URINE KETONE NEGATIVE (NEGATIVE); URINE NITRATE NEGATIVE (NEGATIVE); URINE PROTEIN(semi-quant) NEGATIVE (NEGATIVE); URINE UROBILINOGEN 0.2 E.U/dL (0.2-1.0)
[2023-12-12 15:59] LABS: URINE APPEARANCE Hazy (CLEAR/HAZY)
[2023-12-12 16:00] LABS: BUDDING YEAST PRESENT (NOT PRESENT); URINE BACTERIA MODERATE /hpf (NONE SEEN)
[2023-12-12] MEDS ORDERED: MOUNJARO12.5 MG/0. SQ (16:16)
[2023-12-12] MEDS ORDERED: Insulin Lispro (HumaLOG) SQ SCH (17:00)
[2023-12-12] MEDS ORDERED: cefTRIAXone 1 G in Water For Injection,Sterile 10 ML IV SCH (17:00)
[2023-12-12] MEDS ORDERED: Dextrose (Glucose) 15 GM (4 x 3.75 GM) Chewable TABLET PACK PO PRN (17:15)
[2023-12-12] MEDS ORDERED: Dextrose 50% Water 25 GM/50 ML SYRINGE IV PRN (17:15)
[2023-12-12] MEDS ORDERED: Glucagon 1 MG VIAL IM PRN (17:15)
[2023-12-12 18:02] LABS: CALCIUM 8.4 mg/dL (8.4-10.2); CREATININE, serum 0.9 mg/dL (0.57-1.11); POTASSIUM 4.5 mEq/L (3.5-4.5)
[2023-12-12] MEDS ORDERED: NS 1,000 ML IV SCH (18:15)
--- NOTE | 2023-12-12 19:00 | NUR ---
Received report from PATTIE Carter. Patient resting quietly in bed. at bedside. Vitals within normal limits. Patient denies pain or discomfort.
[2023-12-12] MEDS ORDERED: Pregabalin 150 MG CAP PO SCH (21:00)
[2023-12-12] MEDS ORDERED: Atorvastatin 40 MG TAB PO SCH (21:00)
[2023-12-12] MEDS ORDERED: Amiodarone 200 MG TAB PO SCH (21:00)
[2023-12-12] MEDS ORDERED: Mirtazapine 15 MG TAB PO SCH (21:00)
[2023-12-12] MEDS ORDERED: Melatonin 3 MG TAB PO SCH (21:00)
[2023-12-12] MEDS ORDERED: Apixaban 5 MG TABLET PO SCH (21:00)
[2023-12-12] MEDS ORDERED: Insulin Glargine-ygfn (Lantus) SQ SCH (21:00)
[2023-12-12] MEDS ORDERED: Lisinopril 20 MG TAB PO SCH (21:00)
[2023-12-12 21:37] LABS: CREATININE, serum 1.04 mg/dL (0.57-1.11); POTASSIUM 4.7 mEq/L (3.5-4.5)
[2023-12-13] VITALS (568 sets, daily range): BP systolic 98–147; BP diastolic 41–83; PULSE 67–74; TEMP 97.5–98.4; O2SAT 94–100
[2023-12-13 01:39] LABS: CALCIUM 8.6 mg/dL (8.4-10.2); CREATININE, serum 0.86 mg/dL (0.57-1.11)
[2023-12-13 05:24] LABS: BASO % 0.2 % (0.0-2.0); EOS # 0.1 K/mm3 (0.0-0.7); EOS % 0.9 % (0.0-4.0); GRAN # 5.1 K/mm3 (1.4-6.5); GRAN % 60.8 % (42.2-75.2); HEMOGLOBIN 10.8 g/dl (12.5-16.0); LYMPH # 2.5 K/mm3 (1.2-3.4); LYMPH % 29.7 % (20.0-51.0); MEAN CELL VOLUME 78 fl (80.0-100.0); MEAN CORPUSCULAR HEMOGLOBIN 26 pg (27-31); MEAN CORPUSCULAR HGB CONC 33 g/dl (33.0-37.0); MEAN PLATELET VOLUME 12.3 fl (7.4-10.4); MONO # 0.7 K/mm3 (0.1-0.6); PLATELET COUNT 151 K/mm3 (130-400); RED BLOOD COUNT 4.13 M/mm3 (4.10-5.30); REDCELL DISTRIBUTION WIDTH-CV 16.6 % (11.5-14.5)
[2023-12-13 05:27] LABS: HEMATOCRIT 32.3 % (37.0-47.0)
[2023-12-13 05:48] LABS: CALCIUM 8.1 mg/dL (8.4-10.2); CREATININE, serum 0.87 mg/dL (0.57-1.11); POTASSIUM 3.9 mEq/L (3.5-4.5)
[2023-12-13] MEDS ORDERED: Omeprazole 40 MG **** subs to Pantoprazole 40 MG PO SCH (07:00)
[2023-12-13] MEDS ORDERED: Insulin Glargine-ygfn (Lantus) SQ SCH (09:00)
[2023-12-13] MEDS ORDERED: Fluconazole 100 MG TAB PO SCH (10:00)
--- NOTE | 2023-12-13 12:23 | NUR ---
Supervisor Diagnostic met with patient to discuss discharge planning. Patient lives in [place] with her , Chang (ph#[phone]) who is at bedside. Patient sees Dr. Brantley for primary care and gets medications from [facility]. Patient retired about a year and a half ago and Chang still is employed at [employer]. Patient reported she has BCBS through Chang's employer and also has Medicare pt A. Patient uses a walker for ambulation and stated Chang is always around when she bathes as she worries about falling. Patient stated she sometimes struggles with balance and has done PT in the past to address this. Patient reported independence with getting to the bathroom and dressing. Patient has DPOA-HC in EMR designating Chang. Patient plans to return home at time of discharge. Discharge Plan: Home
--- NOTE | 2023-12-13 12:37 | NUR ---
PT IS SLEEPING IN THE BED. HER IS AT THE BEDSIDE. SHE IS ALERT AND ORIENTED. SHE IS ON ROOM AIR. SHE WAS ASSISTED TO THE BEDSIDE COMMODE. SHE USED A WHEELCHAIR. SHE HAS AN IV WITH NOTHING INFUSING. SHE WOULD LIKE TO ORDER BREAKFAST.
--- NOTE | 2023-12-13 13:14 | NUR ---
Initial visit; Patient and her , Chang, thanked for visiting and offering prayer for Ariela and Chang and for special healing for Ariela. Cooperative Manager was pleased to spend time with family.
--- NOTE | 2023-12-13 13:18 | NUR ---
PT WAS TAKEN TO ROOM 306 VIA A WHEELCHAIR. PT HAD ALL BELONGINGS WITH HER. HER WAS INFORMED BEFORE HE LEFT THE ICU. SHE REMAINS ALERT AND ORIENTED, ON ROOM AIR AND HAS ONE IV WITH NOTHING INFUSING.
--- NOTE | 2023-12-13 13:39 | NUR ---
Pt arrived to medical floor from ICU by wheelchair. Report received from INCLUSION PARAEDUCATOR Lula. Oriented pt to room, call light, and bathroom. Fall precautions implemented and education provided to pt. Shift assessment completed. VSS. INT to Lt hand, CDI. Pt denies pain rating 0/10. Pt has no request at this time. Call light within reach.
[2023-12-13 19:09] LABS: CALCIUM 8.3 mg/dL (8.4-10.2); CREATININE, serum 0.96 mg/dL (0.57-1.11); POTASSIUM 4.3 mEq/L (3.5-4.5)
--- NOTE | 2023-12-13 20:30 | NUR ---
Initial shift assessment done,denies pain, denies any SOB, understands to call for assistance up to bathroom, getting IV rocephin daily for UTI, on fall risk, bed alarm on. Hisband is in room visiting but will be going home here soon, pt is alert/oriented x4 . Denies need for HS snack but did take a couple grahmn crackers to have during the night.Did see that her last Sodium was 128 at 6pm,will let Heaven know of this result.
--- NOTE | 2023-12-13 23:00 | NUR ---
Heaven MCDONALD informed of previous sodium level of 128,,states she did see the result earlier, no new orders.
[2023-12-14] VITALS (7 sets, daily range): BP systolic 109–137; BP diastolic 65–76; PULSE 62–65; TEMP 97.6–98.3
--- NOTE | 2023-12-14 05:21 | NUR ---
Did not sleep much, was up to bathroom to void at least 8 times this shift- VSS
[2023-12-14 08:46] LABS: BASO % 0.4 % (0.0-2.0); EOS # 0.1 K/mm3 (0.0-0.7); EOS % 1.4 % (0.0-4.0); GRAN # 3.9 K/mm3 (1.4-6.5); GRAN % 55.7 % (42.2-75.2); HEMOGLOBIN 11.3 g/dl (12.5-16.0); LYMPH # 2.4 K/mm3 (1.2-3.4); MEAN CELL VOLUME 79 fl (80.0-100.0); MEAN CORPUSCULAR HEMOGLOBIN 27 pg (27-31); MEAN CORPUSCULAR HGB CONC 34 g/dl (33.0-37.0); MEAN PLATELET VOLUME 12.1 fl (7.4-10.4); MONO # 0.5 K/mm3 (0.1-0.6); MONO % 7.2 % (1.7-9.3); PLATELET COUNT 153 K/mm3 (130-400); RED BLOOD COUNT 4.26 M/mm3 (4.10-5.30)
[2023-12-14 08:48] LABS: HEMATOCRIT 33.7 % (37.0-47.0)
[2023-12-14 08:49] LABS: CALCIUM 8.9 mg/dL (8.4-10.2); CREATININE, serum 0.9 mg/dL (0.57-1.11); MAGNESIUM 1.8 mg/dL (1.6-2.6); POTASSIUM 3.9 mEq/L (3.5-4.5)
--- NOTE | 2023-12-14 09:42 | NUR ---
PT IS AWAKE IN THE BED WATCHING TV. HER IS AT THE BEDSIDE. SHE IS ALERT AND ORIENTED. SHE IS ON ROOM AIR. SHE NEEDS TO USE THE RESTROOM. SHE IS GIVEN THE WALKER AND SHE IS ABLE TO AMBULATE TO THE BATHROOM WITH NO ISSUES.
[2023-12-14] MEDS ORDERED: CEFTIN500 MG PO (12:39)
--- NOTE | 2023-12-14 14:10 | NUR ---
PT WAS DISCHARGED VIA WHEELCHAIR. SHE WAS ACCOMPANIED BY HER . PT HAD ALL BELONGINGS WITH HER INCLUDING HER BLOOD GLUCOSE MONITOR. PT DID NOT HAVE ANY SHOES WITH HER, HER STATED THEY WERE IN THE CAR. PT IS ALERT AND ORIENTED AND ALL IV ACCESS WAS DISCONTINUED.
== END 2023-12-14 13:40 | disposition home or self-care (01) | DRG 641 ==
LOC: COL.ER 12:42 → MEDICAL 15:11 → ICU 15:11 → MEDICAL 12-13 13:17
PROVIDERS: Internal Medicine; Physician Assistant; ADMIT Internal Medicine
DX: E87.1 Hypo-osmolality and hyponatremia (principal); N39.0 Urinary tract infection, site not specified; I50.22 Chronic systolic (congestive) heart failure; I42.9 Cardiomyopathy, unspecified; E87.20 Acidosis, unspecified; I11.0 Hypertensive heart disease with heart failure; I48.0 Paroxysmal atrial fibrillation; J45.909 Unspecified asthma, uncomplicated; E11.40 Type 2 diabetes mellitus with diabetic neuropathy, unspecified; K21.9 Gastro-esophageal reflux disease without esophagitis; F32.A Depression, unspecified; E78.5 Hyperlipidemia, unspecified; I25.10 Atherosclerotic heart disease of native coronary artery without angina pectoris; G47.00 Insomnia, unspecified; B96.20 Unspecified Escherichia coli [E. coli] as the cause of diseases classified elsewhere; E87.8 Other disorders of electrolyte and fluid balance, not elsewhere classified; Z91.81 History of falling; Z95.5 Presence of coronary angioplasty implant and graft; Z95.818 Presence of other cardiac implants and grafts; Z90.710 Acquired absence of both cervix and uterus; Z90.49 Acquired absence of other specified parts of digestive tract; Z90.89 Acquired absence of other organs; Z79.4 Long term (current) use of insulin; Z79.899 Other long term (current) drug therapy; M79.675 Pain in left toe(s)
CPT/HCPCS: J0696; J1815; J7030

== ENCOUNTER 2024-01-12 18:41 | Emergency (ER) | payer BC ==
[~2024-01-12] VITALS: Ht 162.6 cm; Wt 104.5 kg
[~2024-01-12 18:41] MED LIST changes: +MOUNJARO12.5 MG/0. SQ; +PEPCID 20MG TAB20 MG PO
[2024-01-12 18:48] VITALS: TEMP 98.1
[2024-01-12] MEDS ORDERED: Ondansetron 4 MG/2 ML VIAL IV ONE (19:15)
[2024-01-12] MEDS ORDERED: Morphine 4 MG/ML VIAL IV ONE (19:15)
[2024-01-12] MEDS ORDERED: LR 1,000 ML IV ONE (19:15)
[2024-01-12 19:24] LABS: BASO % 0.6 % (0.0-2.0); EOS # 0.1 K/mm3 (0.0-0.7); EOS % 1.7 % (0.0-4.0); GRAN # 4.2 K/mm3 (1.4-6.5); GRAN % 59.2 % (42.2-75.2); HEMOGLOBIN 11.6 g/dl (12.5-16.0); LYMPH # 2.3 K/mm3 (1.2-3.4); LYMPH % 32.1 % (20.0-51.0); MEAN CELL VOLUME 83 fl (80.0-100.0); MEAN CORPUSCULAR HEMOGLOBIN 27 pg (27-31); MEAN CORPUSCULAR HGB CONC 32 g/dl (33.0-37.0); MONO # 0.4 K/mm3 (0.1-0.6); PLATELET COUNT 202 K/mm3 (130-400); RED BLOOD COUNT 4.35 M/mm3 (4.10-5.30); REDCELL DISTRIBUTION WIDTH-CV 15.6 % (11.5-14.5)
[2024-01-12 19:26] LABS: HEMATOCRIT 35.9 % (37.0-47.0)
[2024-01-12 19:46] LABS: ALBUMIN 3.3 g/dL (3.4-4.8); BILIRUBIN,TOTAL 0.4 mg/dL (0.2-1.2); CALCIUM 9.2 mg/dL (8.4-10.2); CREATININE, serum 0.98 mg/dL (0.57-1.11); POTASSIUM 4.2 mEq/L (3.5-4.5); TOTAL PROTEIN 6.5 g/dl (6.2-8.1)
[2024-01-12] MEDS ORDERED: Iohexol 300 - 100 ML VIAL IV ONE (21:10)
[2024-01-12] MEDS ORDERED: NS 50 ML IV ONE (21:15)
[2024-01-12 22:28] LABS: COLLECTION METHOD CLEAN CATCH
[2024-01-12 22:36] LABS: PH 5.5 (5.0-8.5); URINE APPEARANCE CLEAR (CLEAR/HAZY); URINE BLOOD NEGATIVE (NEGATIVE); URINE COLOR YELLOW (YELLOW); URINE GLUCOSE NEGATIVE (NEGATIVE); URINE KETONE NEGATIVE (NEGATIVE); URINE NITRATE NEGATIVE (NEGATIVE); URINE PROTEIN(semi-quant) NEGATIVE (NEGATIVE); URINE UROBILINOGEN 0.2 E.U/dL (0.2-1.0)
[2024-01-12] MEDS ORDERED: MACROBID 1100 MG/CAP PO (23:26)
[2024-01-12] MEDS ORDERED: NORCO 325 MG-51 TAB PO (23:35)
[2024-01-12] MEDS ORDERED: Home HYDROcodone/Acetaminophen 5/325 MG #4 TABS/PACK PO ONE (23:45)
[2024-01-12 23:54] VITALS: BP 145/81; PULSE 80
== END 2024-01-12 23:55 | disposition home or self-care (01) ==
LOC: COL.ER 18:41
PROVIDERS: Emergency Medicine
DX: R10.32 Left lower quadrant pain (principal)
CPT/HCPCS: J2270; J2405; J7120; Q9967

== ENCOUNTER 2024-01-16 19:37 | Emergency (ER) | payer BC ==
[~2024-01-16] VITALS: Ht 162.6 cm; Wt 104.5 kg
[~2024-01-16 19:37] MED LIST changes: +MACROBID 1100 MG/CAP PO
[2024-01-16 19:45] VITALS: TEMP 98
[2024-01-16] MEDS ORDERED: HYDROmorphone 0.5 MG/0.5 ML SYRINGE IV ONE (21:15)
[2024-01-16 21:42] LABS: BASO % 0.4 % (0.0-2.0); EOS # 0.1 K/mm3 (0.0-0.7); EOS % 1.9 % (0.0-4.0); GRAN # 3.8 K/mm3 (1.4-6.5); GRAN % 55.2 % (42.2-75.2); HEMOGLOBIN 11.7 g/dl (12.5-16.0); LYMPH # 2.4 K/mm3 (1.2-3.4); LYMPH % 35.7 % (20.0-51.0); MEAN CELL VOLUME 81 fl (80.0-100.0); MEAN CORPUSCULAR HEMOGLOBIN 26 pg (27-31); MEAN CORPUSCULAR HGB CONC 32 g/dl (33.0-37.0); MEAN PLATELET VOLUME 11.2 fl (7.4-10.4); MONO # 0.4 K/mm3 (0.1-0.6); MONO % 6.5 % (1.7-9.3); PLATELET COUNT 196 K/mm3 (130-400); RED BLOOD COUNT 4.51 M/mm3 (4.10-5.30); REDCELL DISTRIBUTION WIDTH-CV 15.5 % (11.5-14.5)
[2024-01-16 21:44] LABS: HEMATOCRIT 36.7 % (37.0-47.0)
[2024-01-16 21:45] LABS: COLLECTION METHOD CLEAN CATCH
[2024-01-16 21:48] LABS: PH 6.5 (5.0-8.5); URINE APPEARANCE CLEAR (CLEAR/HAZY); URINE BLOOD NEGATIVE (NEGATIVE); URINE COLOR YELLOW (YELLOW); URINE GLUCOSE NEGATIVE (NEGATIVE); URINE KETONE NEGATIVE (NEGATIVE); URINE NITRATE NEGATIVE (NEGATIVE); URINE PROTEIN(semi-quant) NEGATIVE (NEGATIVE); URINE UROBILINOGEN 0.2 E.U/dL (0.2-1.0)
[2024-01-16 22:02] LABS: ALBUMIN 3.4 g/dL (3.4-4.8); CALCIUM 9.1 mg/dL (8.4-10.2); MAGNESIUM 1.7 mg/dL (1.6-2.6); POTASSIUM 3.7 mEq/L (3.5-4.5); TOTAL PROTEIN 6.5 g/dl (6.2-8.1)
[2024-01-16 22:08] LABS: TROPONIN-I 0.018 ng/mL (0.00-0.033)
[2024-01-16 22:31] LABS: BILIRUBIN,TOTAL 0.5 mg/dL (0.2-1.2)
[2024-01-16] MEDS ORDERED: Iohexol 300 - 100 ML VIAL IV ONE (23:09)
[2024-01-16] MEDS ORDERED: NS 50 ML IV SCH (23:10)
[2024-01-16] MEDS ORDERED: Gabapentin 300 MG CAP PO ONE (23:30)
[2024-01-17] MEDS ORDERED: ZOVIRAX800 MG PO (00:59)
[2024-01-17] MEDS ORDERED: NEURONTIN300 MG/CAP PO (00:59)
[2024-01-17] MEDS ORDERED: Gabapentin 300 MG CAP PO ONE (01:00)
[2024-01-17 01:15] VITALS: BP 170/104; PULSE 80
== END 2024-01-17 01:15 | disposition home or self-care (01) ==
LOC: COL.ER 19:37
PROVIDERS: Emergency Medicine
DX: M54.50 Low back pain, unspecified (principal); N39.0 Urinary tract infection, site not specified; I10 Essential (primary) hypertension; I25.2 Old myocardial infarction; I48.91 Unspecified atrial fibrillation; I44.7 Left bundle-branch block, unspecified; Z79.01 Long term (current) use of anticoagulants; Z79.899 Other long term (current) drug therapy; Z88.0 Allergy status to penicillin; Z88.1 Allergy status to other antibiotic agents; Z86.19 Personal history of other infectious and parasitic diseases
CPT/HCPCS: J1171; J1920; Q9967